=== PATIENT | female | born 1960 | race Caucasian/White ===

== ENCOUNTER 2016-05-09 00:42 | Inpatient (IN) ==
[2016-05-09] MEDS ORDERED: *HR* HYDROmorphone (PF) 1 MG/ML SYRINGE IVP PRN ×2 (05:29→05:31)
[2016-05-09] MEDS ORDERED: Naloxone 0.4 MG/ML INJ IVP PRN (05:31)
[2016-05-09] MEDS ORDERED: Ondansetron 4 MG/2 ML VIAL IVP PRN (05:31)
[2016-05-09] MEDS ORDERED: Acetaminophen 325 MG TABLET PO PRN (05:31)
[2016-05-09] MEDS ORDERED: Ipratropium/Albuterol Neb 3 ML IH PRN (05:44)
[2016-05-09] MEDS: Ringers Solution, Lactated 1,000 ML IVC SCH ×2 (06:26→17:16)
--- NOTE | 2016-05-09 07:06 | Internal Med History&Physical ---
Date of Encounter: 05/09/16 Time of Encounter: 05:45 Internal Medicine - H&P: HPI Chief complaint: lower abdominal pain, lower GI bleeding x 2 days. Admitted From: Emergency Dept Plans for Post Hospital Care: Home History of present illness: Ms. Vieyra is a 55 year old female with medical history significant for diverticulosis, ischemic colitis, tubular adenoma of colon, s/p SYL and lap cholecystectomy, presented to [facility] ED with left-sided lower abdominal pain, and bloody bowel movements of 2 days duration. Her pain was initially intermittent but has evolved to a constant pattern. She rates her pain as 7-10/10. She report tenemus. Her last 2 bowel movement very bloody. She described it as dark red clots. She reports some nausea, and retching without out-right vomiting. She has chronic nausea and vomiting which she relates to IBS. No fever or chills. No urinary symptoms. NO SICK CONTACTS, NO RECENT TRAVEL, no recent unusual ingestion. No use of antiplatelets or anticoagulants. She had an episode of ischemic colitis and sepsis in August 2015 that required hospitalization for several days. She consulted her PCP over the phone, he recommended she goes to the ED for evaluation. She is FULL CODE as per discussion. Medical history: Reports: arthritis, COPD, diabetes, hyperlipidemia, renal disease, dropped foot, depression, fibrmyalgia, chronic musculoskeletal and lower back pain, IBS, ischemic colitis, diverticulosis and tubular adenoma. Female Surgical History: Reports: cholecystectomy, hysterectomy, back surgery x 4 Psychiatric history: Reports: anxiety, depression Smoking status: Current every day smoker Alcohol use: Reports: none Drug use: Reports: none Family history: HTN, HLD, dm2. tia/cva. No family history of gastrointestinal tumors. Vital Signs Temperature 98.1 F 05/08/16 21:57 Pulse Rate 103 05/08/16 21:57 Respiratory Rate 16 05/08/16 21:57 Blood Pressure 113/60 05/08/16 21:57 O2 Sat by Pulse Oximetry 97 05/08/16 21:57 Temperature 98.1 F 05/08/16 21:57 Pulse Rate 103 05/08/16 21:57 Respiratory Rate 16 05/08/16 21:57 Blood Pressure 113/60 05/08/16 21:57 O2 Sat by Pulse Oximetry 97 05/08/16 21:57 O/E: Obese+, in mild distress from abdominal paint, ill looking, lethargic HEENT: Not pale, anicteric, afebrile, acyanotic, no JVD Chest: CTAB, relative reduction of air entry in the lung bases Heart/CVS: RRR, HS1/2, no murmur Abdomen: soft, diffusely tender, most tender in the LLQ, anticipatory guarding, no masses 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 Muscle power=5/5 in all extremities Skin: no active skin lesion Extremities: no normal pedal pulses, no calf tenderness, no pedal edema Lab Results 05/08/16 05/08/16 05/08/16 Range/Units 22:13 22:40 22:40 WBC 12.0 H (4.3-11.1) K/mcL RBC 4.79 (3.82-4.97) M/mcL Hgb 15.4 (11.5-15.4) g/dL Hct 44.7 (35.3-44.9) % MCV 93.3 (83.0-100.0) fL MCH 32.2 (28.0-33.3) pg MCHC 34.5 (31.6-35.5) g/dL RDW 13.3 (11.5-14.5) % Plt Count 252 (140-400) K/mcL MPV 11.2 (9.4-12.4) fL Immature Gran % 1.0 (0-4) % Seg Neutrophils % 61.8 % Lymphocytes % 28.0 % Monocytes % 5.4 % Eosinophils % 3.1 % Basophils % 0.7 % Neutrophils # 7.4 (1.6-8.9) K/mcL Lymphocytes # 3.4 (0.6-4.6) K/mcL Monocytes # 0.7 (0.0-1.3) K/mcL Eosinophils # 0.4 (0.0-0.6) K/mcL Basophils # 0.1 (0.0-0.2) K/mcL VBG Lactic Acid (0.5-2.2) mmol/L Sodium 141 (136-145) mEq/L Potassium 3.7 (3.5-4.5) mEq/L Chloride 105 (98-109) mEq/L Carbon Dioxide 21 (19-29) mEq/L BUN 19 (7-20) mg/dL Creatinine 1.51 H (0.57-1.11) mg/dL Est GFR ( Amer) 43 L (> 60) Est GFR (Non-Af Amer) 36 L (> 60) BUN/Creatinine Ratio 13 (6-26) Glucose 158 H (70-99) mg/dL POC Glucose 182 H (58-89) Calculated Osmolality 298 (280-300) Calcium 9.5 (8.6-10.8) mg/dL Total Bilirubin 0.5 (0.2-1.2) mg/dL AST 12 (5-34) Units/L ALT 16 (0-55) Units/L Alkaline Phosphatase 142 H (38-126) Units/L Serum Total Protein 8.1 (6.0-8.3) g/dL Albumin 3.6 (3.5-5.0) g/dL Globulin 4.5 H (2.4-3.5) g/dL Albumin/Globulin Ratio 0.8 L (1.1-2.2) Lipase 9 (8-78) Units/L Urine Color (Yellow) Urine Clarity (Clear) Urine pH (5.0-8.0) pH Units Ur Specific [place] (1.010-1.025) Urine Protein (Neg-Trace) mg/dL Urine Glucose (UA) (Normal) mg/dL Urine Ketones (Negative) mg/dL Urine Blood (Negative) Urine Nitrite (Negative) Urine Bilirubin (Negative) Urine Urobilinogen (Normal) mg/dL Ur Leukocyte Esterase (Negative) Urine Microscopic RBC (0-3) per hpf Urine Microscopic WBC Ur Squamous Epith Cells (None-Few) per lpf Amorphous Sediment (Few) Hyaline Casts (None-Few) per lpf Ur Culture Indicated? (NO) Stool Occult Blood (Negative) 05/08/16 05/08/16 05/08/16 Range/Units 22:40 23:30 23:30 WBC (4.3-11.1) K/mcL RBC (3.82-4.97) M/mcL Hgb (11.5-15.4) g/dL Hct (35.3-44.9) % MCV (83.0-100.0) fL MCH (28.0-33.3) pg MCHC (31.6-35.5) g/dL RDW (11.5-14.5) % Plt Count (140-400) K/mcL MPV (9.4-12.4) fL Immature Gran % (0-4) % Seg Neutrophils % % Lymphocytes % % Monocytes % % Eosinophils % % Basophils % % Neutrophils # (1.6-8.9) K/mcL Lymphocytes # (0.6-4.6) K/mcL Monocytes # (0.0-1.3) K/mcL Eosinophils # (0.0-0.6) K/mcL Basophils # (0.0-0.2) K/mcL VBG Lactic Acid 2.0 (0.5-2.2) mmol/L Sodium (136-145) mEq/L Potassium (3.5-4.5) mEq/L Chloride (98-109) mEq/L Carbon Dioxide (19-29) mEq/L BUN (7-20) mg/dL Creatinine (0.57-1.11) mg/dL Est GFR ( Amer) (> 60) Est GFR (Non-Af Amer) (> 60) BUN/Creatinine Ratio (6-26) Glucose (70-99) mg/dL POC Glucose (58-89) Calculated Osmolality (280-300) Calcium (8.6-10.8) mg/dL Total Bilirubin (0.2-1.2) mg/dL AST (5-34) Units/L ALT (0-55) Units/L Alkaline Phosphatase (38-126) Units/L Serum Total Protein (6.0-8.3) g/dL Albumin (3.5-5.0) g/dL Globulin (2.4-3.5) g/dL Albumin/Globulin Ratio (1.1-2.2) Lipase (8-78) Units/L Urine Color Yellow (Yellow) Urine Clarity Slightly Cloudy A (Clear) Urine pH 5.5 (5.0-8.0) pH Units Ur Specific [place] >= 1.030 H (1.010-1.025) Urine Protein 30 H (Neg-Trace) mg/dL Urine Glucose (UA) Normal (Normal) mg/dL Urine Ketones Negative (Negative) mg/dL Urine Blood Trace-intact H (Negative) Urine Nitrite Negative (Negative) Urine Bilirubin Negative (Negative) Urine Urobilinogen Normal (Normal) mg/dL Ur Leukocyte Esterase Negative (Negative) Urine Microscopic RBC 0-3 (0-3) per hpf Urine Microscopic WBC Test Not Performed Ur Squamous Epith Cells Few (None-Few) per lpf Amorphous Sediment Few (Few) Hyaline Casts Few (None-Few) per lpf Ur Culture Indicated? NO (NO) Stool Occult Blood Positive A (Negative) Abdomen/Pelvis CT 05/08/16 22:37 Acute colitis of the sigmoid. IMP Acute sigmoid colitis Chronic morbidities Recent history of ischemic colitis COPD DM2 HLD CKDIII Depression PLAN Admit IVF Dilaudid for analgesia, Zofran and phernegan for pain IV Cipro/flagyl Clear liquid diet Consult GI Continue other medications of chronic morbidities. I discussed my findings and assessment with the patient, she verbalized understanding and is agreeable, she is admitted for evaluation of sigmoid colitis and lower GI bleeding. Past Med Surg Social Fam HX - Past Medical History Medical history: arthritis, COPD, diabetes, hyperlipidemia, renal disease, other Psychiatric history: anxiety, depression - Past Surgical History Surgical History: cholecystectomy, hysterectomy, other (Lumbar fixation) - Social History Smoking Status: Current every day smoker Smokeless Tobacco Status: No Alcohol use: none Drug use: none - Family History Mother Hx Family Medical Disorders: Yes (Diabetes) Daughter Family Member Ethnicity: Non- Living Status: Still Living Hx Family Cardiac Disorders: No Hx Family Respiratory Disorders: No Hx Family Cancer: No Hx Family GI Disorders: No Hx Family Endocrine Disorder: No Hx Family Neuromuscular Disorders: No Hx Family Neurologic Disorders: No Hx Family HEENT Disorders: No Hx Family Autoimmune Disorders: No Internal Medicine - H&P: Meds Baclofen [Lioresal] 20 mg PO QID 02/08/15 [History] Citalopram [CeleXA] 40 mg PO DAILY 02/08/15 [History] Gabapentin [Neurontin] 800 mg PO QID 02/08/15 [History] Omeprazole [PriLOSEC] 40 mg PO DAILY 02/08/15 [History] GlipiZIDE [Glipizide Xl] 5 mg PO DAILY #30 tab.er.24 03/10/16 [Rx] Albuterol Neb [Proventil Neb] 2.5 mg IH Q6H PRN 05/09/16 [History] Albuterol Sulfate [Proair Hfa] 1 - 2 puff IH Q6H PRN 05/09/16 [History] Amitriptyline [Elavil] 100 mg PO HS 05/09/16 [History] Atorvastatin Calcium [Lipitor] 20 mg PO DAILY 05/09/16 [History] Metformin [Glucophage] 500 mg PO BID 05/09/16 [History] Metoclopramide [Reglan] 10 mg PO QIDAC 05/09/16 [History] Ranitidine HCl [Heartburn Relief] 150 mg PO BID 05/09/16 [History] Tolterodine Tartrate [Detrol] 2 mg PO BID 05/09/16 [History] Ciprofloxacin HCl [Cipro] 500 mg PO Q12H 10 Days 05/10/16 [Rx] MetroNIDAZOLE [Flagyl] 500 mg PO TID 10 Days 05/10/16 [Rx] Allergies allantoin Allergy (Verified 05/08/16 22:16) See Comments pt unsure of reaction codeine Allergy (Verified 05/08/16 22:16) Difficulty Breathing diphenhydramine [From Benadryl] Allergy (Verified 05/08/16 22:16) Chest Pain ibuprofen Allergy (Verified 05/08/16 22:16) See Comments "shuts my kidneys down" methylprednisolone [From Solu-Medrol] Allergy (Verified 05/08/16 22:16) Hives Penicillins [PCN] Allergy (Verified 05/08/16 22:16) Rash phenytoin [From Dilantin] Allergy (Verified 05/08/16 22:16) See Comments pt unsure of reaction prednisone Allergy (Verified 05/08/16 22:16) Hives Sulfa (Sulfonamide Antibiotics) Allergy (Verified 05/08/16 22:16) Rash promethazine [From Phenergan] Adverse Reaction (Verified 05/08/16 22:16) Shakiness All Systems PM: A 10-system review of systems was performed and is negative for pertinent findings except as documented above in the HPI. - Constitutional Vitals: Temp Pulse Resp BP Pulse Ox 98.7 F 102 20 105/65 98 05/09/16 03:06 05/09/16 03:06 05/09/16 03:06 05/09/16 03:06 05/09/16 03:06 Internal Med - H&P Results - Labs CBC & Chem 7: 05/10/16 04:36 05/10/16 04:36
[2016-05-09] MEDS: MetroNIDAZOLE 500 MG/100 ML 500 MG/100 ML BAG IVPB SCH ×2 (08:00→17:15)
[2016-05-09 09:08] LABS: Calcium 9.3 mg/dL (8.6-10.8); Potassium 3.9 mEq/L (3.5-4.5)
[2016-05-09] MEDS: *HR* HYDROmorphone (PF) 1 MG/ML SYRINGE IVP PRN ×5 (09:40→22:56)
--- NOTE | 2016-05-09 12:07 | Gastroenterology Consult Note ---
<Lauri Srinivasan - Last Filed: 05/09/16 12:05> Date of Encounter: 05/09/16 Time of Encounter: 10:30 - Assessment and plan (1) BRBPR (bright red blood per rectum) Current Visit: Yes Status: Acute Assessment and plan: Plan for colonoscopy tomorrow. Clear liquid diet today, no red or purple. NPO at midnight. Will use MiraLAX prep. If not clear by 6 AM, give 2 tap water enemas. (2) Colitis Current Visit: No Status: Acute Assessment and plan: Continue Cipro and Flagyl. Plan for colonoscopy tomorrow. (3) Constipation Current Visit: Yes Status: Acute Assessment and plan: Recommend daily fiber supplement and MiraLAX to twice a day PRN. Qualifiers: Constipation type: unspecified constipation type Qualified Code(s): K59.00 - Constipation, unspecified - Time Spent With Patient Total time spent is greater than 50% in coordination of care (as documented) at patient's floor/unit and/or counseling patient: GI History of Present Illness - Data of Consult Patient: known to practice within the last 3 years Consult date: 05/09/16 Requesting Physician: Cynthia Jarquin - Consult Narrative Reason for consult: Bloody BM, infective colitis History of present illness: Ms. Vieyra is a 55 year old female with PMHx of fibromyalgia, chronic musculoskeletal and low back pain, IBS, GERD, stress urinary incontinence, COPD , morbid obesity, CKD, HTN, dyslipidemia, RLS, and constipation who presented to the ED with c/o left-sided abdominal pain, bloody BM, and diarrhea which started 2 days prior to admission. She reports blood clots and BRBPR in bowl and with wiping with her last 2 BMS. She reports chronic nausea and diarrhea which she relates to her IBS. She does have a history of diverticulitis as well as an episode of severe ischemic colitis and sepsis in August 2015 that required hospitalization for several days. No fever or chills. She was started on Cipro and Flagyl. Procedures: Colonoscopy 08/25/2015 showed diffuse severe inflammation in the descending colon secondary to ischemic colitis, diverticulosis in the entire examined colon, and tubular adenoma NSAIDs: None Anticoagulation: None Past Med Surg Social Fam HX - Past Medical History Medical history: arthritis, COPD, diabetes, hyperlipidemia, renal disease, other Psychiatric history: anxiety, depression - Past Surgical History Surgical History: cholecystectomy, hysterectomy, other (Lumbar fixation) - Social History Smoking Status: Current every day smoker Smokeless Tobacco Status: No Alcohol use: none Drug use: none - Family History Mother Hx Family Medical Disorders: Yes (Diabetes) Daughter Family Member Ethnicity: Non- Living Status: Still Living Hx Family Cardiac Disorders: No Hx Family Respiratory Disorders: No Hx Family Cancer: No Hx Family GI Disorders: No Hx Family Endocrine Disorder: No Hx Family Neuromuscular Disorders: No Hx Family Neurologic Disorders: No Hx Family HEENT Disorders: No Hx Family Autoimmune Disorders: No - Gastrointestinal Gastrointestinal: Present: as per HPI - Constitutional Constitutional: as per HPI - EENT Eyes: as per HPI Ears: Present: as per HPI Nose, mouth and throat: Present: as per HPI - Cardiovascular Cardiovascular ROS: Present: as per HPI - Respiratory Respiratory IM: Present: as per HPI - Genitourinary Genitourinary: Absent: change in color, Urinary frequency - Neurological ROS Neurological GI: Present: as per HPI - Hematologic/Lymphatic Hematologic/Lymphatic pediatric: Present: as per HPI - Musculoskeletal Musculoskeletal ROS GI: Present: as per HPI - Integumentary Integumentary GI: Present: as per HPI - Psychiatric ROS Psychiatric GI: Present: as per HPI - Endocrine Endocrine IM: Present: as per HPI - Constitutional Vitals: Temp Pulse Resp BP Pulse Ox 98.0 F 83 16 94/64 97 05/09/16 10:21 05/09/16 10:21 05/09/16 10:21 05/09/16 10:21 05/09/16 10:21 General appearance: Present: cooperative, A&O X 3, no acute distress, answers questions appropriately - Head Head exam: Present: atraumatic, normocephalic - Eye Eye exam: Present: normal appearance, sclera anicteric - ENT ENT exam: Present: mucous membranes dry - Neck Neck exam general surgery: Present: normal inspection, trachea midline - Respiratory Respiratory exam: Present: CTAB. Absent: rales, rhonchi - Cardiovascular Cardiovascular exam: Present: RRR, +S1, +S2 - GI/Abdominal GI/Abdominal exam: Present: soft, tenderness (LLQ with palpation), no peritoneal signs. Absent: distended, firm, guarding - Rectal Rectal exam: Present: deferred - Extremities Exam Extremities exam: Present: warm - Neurological Exam Neurological exam: Present: no focal deficits - Psychiatric Psychiatric exam: Present: normal affect, normal mood - Skin Skin exam: Present: dry, intact, normal color, warm Results - Labs CBC & Chem 7: 05/09/16 08:45 Labs: Last Result Calcium 9.3 mg/dL (8.6-10.8) 05/09/16 08:45 Consult Discharge Plan - Plan Referrals: Edmundo Phillips MD [Primary Care Provider] - <MonaManuelJessica - Last Filed: 05/09/16 17:25> Date of Encounter: 05/09/16 Time of Encounter: 14:30 - Time Spent With Patient Total time spent is greater than 50% in coordination of care (as documented) at patient's floor/unit and/or counseling patient: GI History of Present Illness - Data of Consult Requesting Physician: Cynthia Jarquin - Consult Narrative History of present illness: Ms. Vieyra is a 55 year old female - Constitutional Vitals: Temp Pulse Resp BP Pulse Ox 98.1 F 83 14 97/67 94 L 05/09/16 14:27 05/09/16 14:27 05/09/16 14:27 05/09/16 14:27 05/09/16 14:27 Results - Labs CBC & Chem 7: 05/09/16 08:45 Labs: Last Result Calcium 9.3 mg/dL (8.6-10.8) 05/09/16 08:45 - Attending Attestation I examined this patient and my medical decision-making was reviewed with the CULTURAL ANTHROPOLOGY PROFESSOR/PA/Advanced Practice Nurse/Resident Physician. I agree with the documented findings, disposition and treatment plan as described except to the extent set forth below. Pt with sigmoid colitis. Still very tander. Cont Abs. C-scope as out pt in 6-8 weeks
[2016-05-10] MEDS: MetroNIDAZOLE 500 MG/100 ML 500 MG/100 ML BAG IVPB SCH ×2 (00:56→07:57)
[2016-05-10] MEDS: *HR* HYDROmorphone (PF) 1 MG/ML SYRINGE IVP PRN ×3 (02:01→06:41)
[2016-05-10] MEDS: Ringers Solution, Lactated 1,000 ML IVC SCH (04:23)
[2016-05-10 04:58] LABS: Basophils # 0.1 K/mcL (0.0-0.2); Basophils % 1.1 %; Eosinophils # 0.4 K/mcL (0.0-0.6); Eosinophils % 5.9 %; Hematocrit 38.7 % (35.3-44.9); Immature Granulocytes % 1.7 % (0-4); Lymphocytes # 2.2 K/mcL (0.6-4.6); Lymphocytes % 32.1 %; Mean Corpuscular HGB Conc 33.6 g/dL (31.6-35.5); Mean Corpuscular Hemoglobin 32.4 pg (28.0-33.3); Mean Corpuscular Volume 96.5 fL (83.0-100.0); Mean Platelet Volume 11.1 fL (9.4-12.4); Monocytes # 0.5 K/mcL (0.0-1.3); Monocytes % 7.3 %; Neutrophils # 3.6 K/mcL (1.6-8.9); Platelet Count 187 K/mcL (140-400); Red Blood Count 4.01 M/mcL (3.82-4.97); Red Cell Distribution Width 13.3 % (11.5-14.5); Segmented Neutrophils % 51.9 %
[2016-05-10 05:07] LABS: Calcium 8.4 mg/dL (8.6-10.8); Potassium 3.9 mEq/L (3.5-4.5)
[2016-05-10 07:57] VITALS: BP 95/53
--- NOTE | 2016-05-10 09:02 | Discharge Summary ---
<Kenn Pratt - Last Filed: 05/10/16 12:59> Date of Encounter: 05/10/16 Time of Encounter: 09:00 - Discharge Diagnosis (1) Left against medical advice Priority: Primary Status: Acute (2) Colitis Priority: Primary Status: Acute (3) BRBPR (bright red blood per rectum) Priority: Secondary Status: Acute (4) DM (diabetes mellitus), type 2 Priority: Secondary Status: Acute Qualifiers: Qualified Code(s): E11.9 - Type 2 diabetes mellitus without complications (5) Obesity (BMI 30-39.9) Priority: Secondary Status: Acute (6) HTN (hypertension) Priority: Secondary Status: Acute Qualifiers: Qualified Code(s): I10 - Essential (primary) hypertension (7) DVT prophylaxis Priority: Secondary Status: Acute - Discharge Medications Prescriptions: Ciprofloxacin HCl [Cipro] 500 mg PO Q12H 10 Days MetroNIDAZOLE [Flagyl] 500 mg PO TID 10 Days Home Medications: Baclofen [Lioresal] 20 mg PO QID 02/08/15 [History] Citalopram [CeleXA] 40 mg PO DAILY 02/08/15 [History] Gabapentin [Neurontin] 800 mg PO QID 02/08/15 [History] Omeprazole [PriLOSEC] 40 mg PO DAILY 02/08/15 [History] GlipiZIDE [Glipizide Xl] 5 mg PO DAILY #30 tab.er.24 03/10/16 [Rx] Albuterol Neb [Proventil Neb] 2.5 mg IH Q6H PRN 05/09/16 [History] Albuterol Sulfate [Proair Hfa] 1 - 2 puff IH Q6H PRN 05/09/16 [History] Amitriptyline [Elavil] 100 mg PO HS 05/09/16 [History] Atorvastatin Calcium [Lipitor] 20 mg PO DAILY 05/09/16 [History] Metformin [Glucophage] 500 mg PO BID 05/09/16 [History] Metoclopramide [Reglan] 10 mg PO QIDAC 05/09/16 [History] Ranitidine HCl [Heartburn Relief] 150 mg PO BID 05/09/16 [History] Tolterodine Tartrate [Detrol] 2 mg PO BID 05/09/16 [History] Ciprofloxacin HCl [Cipro] 500 mg PO Q12H 10 Days 05/10/16 [Rx] MetroNIDAZOLE [Flagyl] 500 mg PO TID 10 Days 05/10/16 [Rx] Allergies/Adverse Reactions: Allergies allantoin Allergy (Verified 05/08/16 22:16) See Comments pt unsure of reaction codeine Allergy (Verified 05/08/16 22:16) Difficulty Breathing diphenhydramine [From Benadryl] Allergy (Verified 05/08/16 22:16) Chest Pain ibuprofen Allergy (Verified 05/08/16 22:16) See Comments "shuts my kidneys down" methylprednisolone [From Solu-Medrol] Allergy (Verified 05/08/16 22:16) Hives Penicillins [PCN] Allergy (Verified 05/08/16 22:16) Rash phenytoin [From Dilantin] Allergy (Verified 05/08/16 22:16) See Comments pt unsure of reaction prednisone Allergy (Verified 05/08/16 22:16) Hives Sulfa (Sulfonamide Antibiotics) Allergy (Verified 05/08/16 22:16) Rash promethazine [From Phenergan] Adverse Reaction (Verified 05/08/16 22:16) Shakiness Date of admission: 05/09/16 05:31 Primary care physician: Edmundo Phillips MD Consults: 05/09/16 05:31 Consult to Gastroenterology [CONS] Routine Consulting Provider: Gastroenterology [place] Reason for Consult: infective colitis Call Completed: No 05/09/16 15:33 Consult to Occupational Therapy [CONS] Routine Comment: Evaluate, develop and implement POC Consult to Physical Therapy [CONS] Routine Comment: Evaluate, develop and implement POC Discharging clinician: Kenn Pratt Anticipated date of discharge: 05/10/16 - Patient Status Disposition: Home, Self-Care Condition: Serious Functional capacity at discharge: independent ambulation Overall status at discharge: patient is not back to baseline - Discharge Instructions Follow Up With: Edmundo Phillips MD [Primary Care Provider] - (F/u with her pcp w/in a week for leaving against medical advise hospital f/u, colitis untreated in hospital) Jessica Dunn MD [Partnered Physician] - (GI consult was placed in hospital for planned colonoscopy but pt let against medical advise, f/u as outpt, hopefully to have colonoscopy as soon as possible as outpt) - Diet and Activity Activity: other (bedrest) Diet: other (clear liquid diet until symptoms get better) Hospital course: Ms. Vieyra is a 55 year old female with hx of CAD and COPD came to ER with of left sided abdominal pain, CT of abd showed acute sigmoid colitis, she was started on cipro and flagyl IV, GI was consulted and thought that she is glory hole tender of sigmoid side therefore he recommended outpt colonoscopy in 6 to 8 week , before I was able to see her today, pt told nurse that she wants to smoke really bad that she will have to leave AMA, pt signed the paperwork and left. I spoke to her pharmacy over the phone for po flagyl/cipro, she fill f/u with her pcp and GI for outpt colonoscopy. - Time Spent with Patient Total time spent providing and/or coordinating discharge services: - Constitutional Vitals: Temp Pulse Resp BP Pulse Ox 98.0 F 76 16 95/53 96 05/10/16 07:52 05/10/16 07:52 05/10/16 07:52 05/10/16 07:52 05/10/16 07:52 Exam: Pt left against medical advise before I can examine and talk to her. <JackiKevin R - Last Filed: 05/10/16 16:38> Date of Encounter: 05/10/16 Date of admission: 05/09/16 05:31 Primary care physician: Edmundo Phillips MD Consults: 05/09/16 05:31 Consult to Gastroenterology [CONS] Routine Consulting Provider: Gastroenterology [place] Reason for Consult: infective colitis Call Completed: No 05/09/16 15:33 Consult to Occupational Therapy [CONS] Routine Comment: Evaluate, develop and implement POC Consult to Physical Therapy [CONS] Routine Comment: Evaluate, develop and implement POC Hospital course: Ms. Vieyra is a 55 year old female - Time Spent with Patient Total time spent providing and/or coordinating discharge services: - Constitutional Vitals: Temp Pulse Resp BP Pulse Ox 98.0 F 76 16 95/53 96 05/10/16 07:52 05/10/16 07:52 05/10/16 07:52 05/10/16 07:52 05/10/16 07:52 - Attending Attestation Mrs. Cline signed out against medical advice this a.m.
== END 2016-05-10 09:08 | disposition home or self-care (01) | DRG 249 ==
LOC: 3ANU → SUATTDRO 05:31
PROVIDERS: ADMIT Family Medicine; ATTEND Internal Medicine

== ENCOUNTER 2017-01-11 13:54 | Inpatient (IN) ==
[2017-01-11] MEDS ORDERED: Acetaminophen 325 MG TABLET PO ONE (18:29)
[2017-01-11] MEDS ORDERED: Acetaminophen 325 MG TABLET PO PRN (20:42)
[2017-01-11] MEDS ORDERED: Ondansetron 4 MG/2 ML VIAL IVP PRN (20:42)
[2017-01-11] MEDS ORDERED: Dextrose Gel 15 GM PO PRN ×2 (20:47)
[2017-01-11] MEDS ORDERED: *HR* Dextrose 50 % in Water (Syg) 50 ML SYRINGE IVP PRN (20:47)
[2017-01-11] MEDS ORDERED: D5% in Water 1,000 ML IVC PRN (20:47)
--- NOTE | 2017-01-11 20:56 | Internal Med History&Physical ---
Date of Encounter: 01/11/17 Time of Encounter: 20:15 Assessment and Plan (1) Expressive dysphasia Current visit: Yes Status: Acute 1. Suspect stroke. 2. Speech is improving. 3. Will proceed with stroke work up -- MRI brain, ECHO, Carotid Dopplers, and neurology consult. 4. Consult speech therapy. 5. Start aspirin, STATIN. 6. Smoking cessation counseling. (2) Type 2 diabetes mellitus Current visit: Yes Status: Chronic 1. Hold oral agents. 2. Will monitor glucose and treat with SSI. 3. Given CKD, I recommend stopping her oral diabetic medications and consider initiating insulin upon discharge. Qualifiers: Diabetes mellitus complication status: with kidney complications Diabetes mellitus complication detail: with chronic kidney disease Diabetes mellitus detention insulin use: without detention use Chronic kidney disease stage: stage 3 (moderate) Qualified Code(s): E11.22 - Type 2 diabetes mellitus with diabetic chronic kidney disease; N18.3 - Chronic kidney disease, stage 3 ( moderate); N18.3 - Chronic kidney disease, stage 3 (moderate) (3) Cardiac enzymes elevated Current visit: No Status: Acute 1. Patient denies CP or angina. 2. Will trend troponins and EKG's. 3. Patient may need further cardiac work-up after stroke evaluation. (4) HTN (hypertension) Current visit: No Status: Chronic 1. Patient not on home BP meds. 2. BP stable presently. 3. Monitor BP and do not treat (in the setting of stroke) unless SBP > 160. Qualifiers: Hypertension type: essential hypertension Qualified Code(s): I10 - Essential (primary) hypertension (5) DVT prophylaxis Current visit: No Status: Acute 1. Heparin SQ. Internal Medicine - H&P: HPI Chief complaint: difficulty speaking Admitted From: Hospital to Hospital Transfer Plans for Post Hospital Care: Home History of present illness: Ms. Vieyra is a 56 year old female who presents in transfer from [facility] [place] [facility] with complaints of difficulty speaking. Her last known well was last night before she went to bed. She woke up this morning and noted to have difficulty speaking and expressing herself verbally. She therefore came to the ER and initial workup was negative. She was not a candidate for TPA given unknown time of onset. She was therefore transferred here for further workup and care. Upon my assessment of the patient, she had several family members present who confirmed the history. Patient still has some expressive dysphagia, but she has improved significantly from this morning. She still has some difficulty expressing herself verbally, but for the most part, she is able to communicate fairly well. She has no other focal deficits. She denies any numbness, weakness, or paresthesias. She does have numbness of the right leg and foot drop, but this is old due to spinal surgery and chronic back issues. She denies any chest pain, shortness of breath, cough, fevers, vomiting, or diarrhea. Of note, her troponin was elevated slightly at 0.19. Her EKG shows some subtle T-wave inversion and ST depression anteriorly, but this is unchanged from an old EKG. Her stroke risk factors include diabetes, smoking history, and high cholesterol. Patient was counseled at length of the need to quit smoking. Past Med Surg Social Fam HX - Past Medical History Medical history: arthritis, COPD, diabetes, hyperlipidemia, renal disease, other Psychiatric history: anxiety, depression - Past Surgical History Surgical History: cholecystectomy, hysterectomy, orthopedic, other, other - Social History Smoking Status: Current every day smoker Packs per day: 1 Smokeless Tobacco Status: No Alcohol use: none Drug use: none Current living situation: Home - Independent Activity Level: Independent ambulation Recent Out of Country Travel Within the Last 8 Weeks: No - Family History Daughter Family Member Ethnicity: Non- Living Status: Still Living Hx Family Cardiac Disorders: No Hx Family Respiratory Disorders: No Hx Family Cancer: No Hx Family GI Disorders: No Hx Family Endocrine Disorder: No Hx Family Neuromuscular Disorders: No Hx Family Neurologic Disorders: No Hx Family HEENT Disorders: No Hx Family Autoimmune Disorders: No Mother Living Status: Hx Family Neurologic Disorders: No Father Living Status: Hx Family Neurologic Disorders: No Internal Medicine - H&P: Meds Oxycodone HCl 10 mg PO QID PRN 11/28/16 [History] Amitriptyline HCl 100 mg PO HS 01/11/17 [History] Atorvastatin [Lipitor] 40 mg PO HS 01/11/17 [History] Baclofen [Baclofen] 20 mg PO QID 01/11/17 [History] Citalopram Hydrobromide [Celexa] 40 mg PO DAILY 01/11/17 [History] Gabapentin [Neurontin] 800 mg PO QID 01/11/17 [History] Metoclopramide [Reglan] 10 mg PO Q6HR PRN 01/11/17 [History] Omeprazole [PriLOSEC] 40 mg PO DAILY 01/11/17 [History] glipiZIDE [Glucotrol] 5 mg PO DAILY 01/11/17 [History] 3 Allergy/AdvReac Type Severity Reaction Status Date / Time allantoin Allergy See Verified 07/22/16 22:39 Comments codeine Allergy Difficulty Verified 07/22/16 22:39 Breathing diphenhydramine Allergy Chest Pain Verified 07/22/16 22:39 [From Benadryl] ibuprofen Allergy See Verified 07/22/16 22:39 Comments methylprednisolone Allergy Hives Verified 07/22/16 22:39 [From Solu-Medrol] Penicillins [PCN] Allergy Rash Verified 07/22/16 22:39 phenytoin [From Dilantin] Allergy See Verified 07/22/16 22:39 Comments prednisone Allergy Hives Verified 07/22/16 22:39 Sulfa (Sulfonamide Allergy Rash Verified 07/22/16 22:39 Antibiotics) promethazine [From Phenergan] AdvReac Shakiness Verified 07/22/16 22:39 - Constitutional Constitutional: no chills, no fever(s), no night sweats - EENT Eyes: no blurry vision, no change in vision, no diplopia Ears: no ear pain, no tinnitus Nose, mouth and throat: no nasal congestion, no nasal discharge, no sinus pressure, no sore throat - Cardiovascular Cardiovascular ROS IM: no chest pain, no dyspnea, no dyspnea on exertion, no edema, no palpitations, no paroxysmal nocturnal dyspnea, no syncope - Respiratory Respiratory: no cough, no hemoptysis, no wheezing, no chest congestion, no excessive phlegm production, no pain with cough - Gastrointestinal Gastrointestinal: no abdominal pain, no diarrhea, no hematemesis, no hematochezia, no melena, no nausea, no vomiting - Genitourinary Genitourinary: no dysuria, no flank pain, no hematuria - Musculoskeletal Musculoskeletal ROS IM: arthralgias, back pain (chronic ) - Integumentary Integumentary IM: no rash, no jaundice - Neurological Neurological ROS: abnormal speech, no dizziness, no focal weakness, no frequent falls, no headache(s) - Psychiatric Psychiatric: no anxiety, no depression - Endocrine Endocrine IM: no polydipsia, no polyuria - Hematologic/Lymphatic Hematologic/Lymphatic: no easy bruising, no lymphadenopathy - Allergic/Immunologic Allergic/Immunologic: no GI upset with certain foods - Constitutional Vitals: Temp Pulse Resp BP Pulse Ox 98.2 F 84 17 126/82 95 01/11/17 19:24 01/11/17 19:24 01/11/17 19:24 01/11/17 19:24 01/11/17 19:24 General appearance: Present: cooperative, A&O X 3, pleasant, no acute distress - Head Head exam: Present: atraumatic, normal inspection - Expanded Head Exam Head exam expanded: Absent: abrasion, contusion, general tenderness - Eye Eye exam: Present: EOMI, normal appearance, PERRL. Absent: scleral icterus Pupils: Present: normal accommodation - ENT ENT exam: Present: mucous membranes dry, normal exam - Neck Neck exam general surgery: Present: full ROM, supple. Absent: tenderness, thyromegaly - Expanded Neck Exam Neck exam: Absent: carotid bruit - Respiratory Respiratory exam: Present: CTAB. Absent: chest wall tenderness, rales, rhonchi , wheezes - Cardiovascular Cardiovascular exam: Present: RRR, +S1, +S2. Absent: diastolic murmur, systolic murmur - GI/Abdominal GI/Abdominal exam: Present: normal bowel sounds, soft. Absent: guarding, hepatomegaly, rebound, splenomegaly, tenderness - Extremities Exam Extremities exam: Present: full ROM, normal capillary refill, warm, radial pulses palpable and symmetrical. Absent: calf tenderness, joint swelling, pedal edema - Back Exam Back exam: Absent: CVA tenderness (L), CVA tenderness (R) - Neurological Exam Neurological exam: Present: alert, CN II-XII intact, motor sensory deficit ( right lower extremity numbess and foot drop -- old/chronic), oriented X3, speech deficit (mild episodes of expressive dysphasia). Absent: facial droop - Psychiatric Psychiatric exam: Present: normal affect, normal mood - Skin Skin exam: Present: dry, warm. Absent: rash Internal Med - H&P Results - Labs Labs: I reviewed her labs at [facility] include the following: WBC 13.6 Hemoglobin 12.8 Hematocrit 37.7 Platelet count 178 PT 10.9 INR 1.0 PTT 29.4 Sodium 139 Potassium 3.7 Chloride 103 Carbon dioxide 21 BUN 21 Creatinine 2.[address] head -- negative - EKG Data -: EKG Interpreted by Myself EKG shows normal: sinus rhythm - EKG Data Prior EKG available for review: yes When compared to previous EKG: there is no significant change EKG comments: 01/11/17 21:16 Incomplete RBBB; anterior T wave changes and subtle ST depression suggesting ischemia -- unchanged from prior.
[2017-01-11] MEDS: *HR* Heparin 5,000 UNIT/ML VIAL SQ SCH (22:08)
[2017-01-11] MEDS: *HR* OxyCODONE Immed Rel 5 MG TABLET PO PRN (22:09)
[2017-01-11] MEDS: Baclofen 10 MG TABLET PO SCH (22:09)
[2017-01-11] MEDS: Gabapentin 400 MG CAPSULE PO SCH (22:09)
[2017-01-12 04:12] LABS: Basophils # 0.1 K/mcL (0.0-0.2); Basophils % 1.2 %; Eosinophils # 0.4 K/mcL (0.0-0.6); Hematocrit 37.5 % (35.3-44.9); Hemoglobin 12.2 g/dL (11.5-15.4); Immature Granulocytes % 2.7 % (0-4); Lymphocytes # 3.1 K/mcL (0.6-4.6); Lymphocytes % 34.7 %; Mean Corpuscular HGB Conc 32.5 g/dL (31.6-35.5); Mean Corpuscular Volume 95.4 fL (83.0-100.0); Monocytes # 0.7 K/mcL (0.0-1.3); Monocytes % 7.4 %; Neutrophils # 4.5 K/mcL (1.6-8.9); Platelet Count 169 K/mcL (140-400); Red Blood Count 3.93 M/mcL (3.82-4.97); Red Cell Distribution Width 14.4 % (11.5-14.5)
[2017-01-12 04:21] LABS: INR 1.1; Prothrombin Time 12.2 Seconds (9.4-12.1)
[2017-01-12 04:23] LABS: Activated Partial Thrombo Time 31.2 Seconds (26.0-36.0)
[2017-01-12 04:33] LABS: Albumin/Globulin Ratio 0.8 (1.1-2.2); Bilirubin,Total 0.3 mg/dL (0.2-1.2); Calcium 8.9 mg/dL (8.6-10.8); Chol/HDL Ratio 5.6 (0-4.9); Globulin 3.7 g/dL (2.4-3.5); Magnesium 1.6 mg/dL (1.6-2.6); Potassium 3.7 mEq/L (3.5-4.5); Total Protein 6.7 g/dL (6.0-8.3)
[2017-01-12] MEDS: *HR* Heparin 5,000 UNIT/ML VIAL SQ SCH (06:18)
[2017-01-12] MEDS ORDERED: 0.9 % Sodium Chloride 500 ML IVC ONE (08:30)
[2017-01-12] MEDS ORDERED: Aspirin 81 MG TAB.CHEW PO SCH (09:00)
[2017-01-12] MEDS: *HR* OxyCODONE Immed Rel 5 MG TABLET PO PRN (09:06)
[2017-01-12] MEDS: Gabapentin 400 MG CAPSULE PO SCH (09:06)
[2017-01-12] MEDS: 0.9 % Sodium Chloride 1,000 ML IVC SCH ×2 (09:07→18:24)
[2017-01-12] MEDS: Baclofen 10 MG TABLET PO SCH ×3 (09:07→17:50)
[2017-01-12] MEDS: Insulin LISPRO 300 UNITS/3 ML VIAL SQ SCH ×3 (09:08→17:42)
--- NOTE | 2017-01-12 09:31 | Neurology - Consult Note ---
Date of Encounter: 01/12/17 Time of Encounter: 08:30 Assessment and Plan (1) Expressive dysphasia Current Visit: Yes Status: Acute Patient presents with main concern for expressive dysphasia beginning earlier that day. She woke with these neurologic findings with last known normal the night before. Daughter noticed right facial droop and dysphasia. Although she has improved some since presentation, word finding is still present. No facial droop was seen at the time of exam, but patient seemed to suffer from some motor defects on the right. Whether these defects are from direct involvement in a stroke vs mild lizeth-neglect is uncertain at the moment. Given her definite aphasia, the location of the lesion would suggest lizeth-neglect. Echo performed was normal and b/l carotid dopplers showed Distal ICA RT is 60-79% no plaque visualized and Lft distal ICA 40-59% preliminarily. MRI is pending Wait for MRI in order to assess for CVA (size and location if present) Continue aspirin and statin Recommend PT/OT and speech evaluation and rehab allow permissive hypertension Recommend Continuos Cardiac History of Present Illness Chief complaint: Neuro deficits, aphasia HPI: Ms. Vieyra is a 56 year old female with past medical history of COPD, DM, CKD 3 , and hld presented to [facility], by way of her family doctor and [place] [facility], because of new neurological deficits. She reports that she first noticed some aphasia yesterday morning around 8am, but went back to sleep thinking that they would resolve. She was woken by her daughter at around 11am and continued to have the neurological symptoms and came to the ER. The daughter felt that she had a r-sided facial droop and she was having some difficulty speaking. After presentation to the ER, she began to have some improvement in her aphasia , though was still having some difficulty speaking. When seen this morning, she was asleep at first but woke relatively easily. She is still having difficulty with word finding and is having some frustration because of it, but is otherwise able to communicate. She reports that she has a bit of a headache and having had slightly blurred vision that is now resolved. She denies any new weakness of numbness. She denies ever having symptoms like this previously. She does state that she has a foot drop of her right foot for which she has had surgery before, that has left her with some numbness and weakness on that side. Past Med Surg Social Fam HX - Past Medical History Medical history: arthritis, COPD, diabetes, hyperlipidemia, renal disease, other Psychiatric history: anxiety, depression - Past Surgical History Surgical History: cholecystectomy, hysterectomy, orthopedic, other, other - Social History Smoking Status: Current every day smoker Packs per day: 1 Smokeless Tobacco Status: No Alcohol use: none Drug use: none - Family History Mother Living Status: Hx Family Neurologic Disorders: No Father Living Status: Hx Family Neurologic Disorders: No Daughter Family Member Ethnicity: Non- Living Status: Still Living Hx Family Cardiac Disorders: No Hx Family Respiratory Disorders: No Hx Family Cancer: No Hx Family GI Disorders: No Hx Family Endocrine Disorder: No Hx Family Neuromuscular Disorders: No Hx Family Neurologic Disorders: No Hx Family HEENT Disorders: No Hx Family Autoimmune Disorders: No Medications and Allergies Oxycodone HCl 10 mg PO QID PRN 11/28/16 [History] Amitriptyline HCl 100 mg PO HS 01/11/17 [History] Atorvastatin [Lipitor] 40 mg PO HS 01/11/17 [History] Baclofen [Baclofen] 20 mg PO QID 01/11/17 [History] Citalopram Hydrobromide [Celexa] 40 mg PO DAILY 01/11/17 [History] Gabapentin [Neurontin] 800 mg PO QID 01/11/17 [History] Metoclopramide [Reglan] 10 mg PO Q6HR PRN 01/11/17 [History] Omeprazole [PriLOSEC] 40 mg PO DAILY 01/11/17 [History] glipiZIDE [Glucotrol] 5 mg PO DAILY 01/11/17 [History] 3 Allergy/AdvReac Type Severity Reaction Status Date / Time allantoin Allergy See Verified 07/22/16 22:39 Comments codeine Allergy Difficulty Verified 07/22/16 22:39 Breathing diphenhydramine Allergy Chest Pain Verified 07/22/16 22:39 [From Benadryl] ibuprofen Allergy See Verified 07/22/16 22:39 Comments methylprednisolone Allergy Hives Verified 07/22/16 22:39 [From Solu-Medrol] Penicillins [PCN] Allergy Rash Verified 07/22/16 22:39 phenytoin [From Dilantin] Allergy See Verified 07/22/16 22:39 Comments prednisone Allergy Hives Verified 07/22/16 22:39 Sulfa (Sulfonamide Allergy Rash Verified 07/22/16 22:39 Antibiotics) promethazine [From Phenergan] AdvReac Shakiness Verified 07/22/16 22:39 - Constitutional Constitutional ROS IM: headache(s), no chills, no fever(s), no weakness - Eyes Eyes: right: blurred vision (now resolved) - Nose, Mouth, Throat Nose, mouth and throat: headache(s), no abnormal hearing, no disequilibrium, no dysphagia, no facial pain - Cardiovascular Cardiovascular ROS IM: rapid heart rate, no chest pain, no diaphoresis, no lightheadedness - Respiratory Respiratory IM: no cough, no dyspnea - Musculoskeletal Musculoskeletal: right: ankle stiffness - Neurological Neurological ROS: abnormal speech (as per HPI), focal weakness (chronic in right foot, in right eye with right lateral eye movement, in right SCM), headache(s), numbness (in r foot/leg), sensory deficit (as per HPI), no confusion, no disequilibrium, no dizziness, no loss of vision, no memory loss, no weakness Physical Examination - Vital Signs Vital Signs: Initial Vital Signs Temp Pulse Resp BP Pulse Ox 97.6 F 81 16 140/87 95 01/11/17 16:29 01/11/17 16:29 01/11/17 16:29 01/11/17 16:29 01/11/17 16:29 - Exam Exam: Gen: asleep but easily woken, no acute distress, comfortable appearing, A&Ox3 HEENT: NCAT, mucous membranes moist, difficulty with right lateral movement of right eye, PERRLA, neck supple, difficulty in movement of neck to right CV: RRR, no m/r/g Resp: CTA b/l, no w/c/r Neuro: A&Ox3, finger to nose inacurrate with tremors, [id number] smooth and accurate with left leg, but unable to perform with right, JOHN poor anthony and not rapid, CN 2-12 show reduced motion of right eye in abduction, mildly decreased sensation on right side of face, strength 4/5 in right side bending and right head rotation, gross sensation intact except for chronic decreased sensation in right foot and leg, strength intact in UE but chonically decreased in right LE, DTRS 1/4 in LE and 2/4 in UE b/l Results - Laboratory Findings CBC and BMP: 01/12/17 03:31 01/12/17 03:31 Abnormal lab findings: Abnormal lab results PT 12.2 Seconds (9.4-12.1) H 01/12/17 03:31 Creatinine 1.96 mg/dL (0.57-1.11) H 01/12/17 03:31 Est GFR ( Amer) 32 (> 60) L 01/12/17 03:31 Est GFR (Non-Af Amer) 26 (> 60) L 01/12/17 03:31 Glucose 210 mg/dL (70-99) H 01/12/17 03:31 POC Glucose 145 (58-89) H 01/11/17 16:45 Calculated Osmolality 303 (280-300) H 01/12/17 03:31 Alkaline Phosphatase 153 Units/L (38-126) H 01/12/17 03:31 Troponin I 0.19 ng/mL (0-0.03) H* 01/12/17 03:31 Albumin 3.0 g/dL (3.5-5.0) L 01/12/17 03:31 Globulin 3.7 g/dL (2.4-3.5) H 01/12/17 03:31 Albumin/Globulin Ratio 0.8 (1.1-2.2) L 01/12/17 03:31 Triglycerides 261 mg/dL (< 150) H 01/12/17 03:31 VLDL Cholesterol, Calc 52 mg/dL (< 31) H 01/12/17 03:31 HDL Cholesterol 28 mg/dL (40-59) L 01/12/17 03:31 Cholesterol/HDL Ratio 5.6 (0-4.9) H 01/12/17 03:31 Consult Discharge Plan - Plan Referrals: Edmundo Phillips MD [Primary Care Provider] -
--- NOTE | 2017-01-12 12:39 | Internal Med Progress Note ---
Date of Encounter: 01/12/17 Time of Encounter: 12:36 - Assessment and plan (1) Expressive dysphasia Current Visit: Yes Status: Acute Assessment and plan: Jennifer Vieyra is a 56 y/o female with past medical history hypertension, diabetes and tobacco use who presented to outside hospital on 01/11/17 with expressive aphasia and right arm weakness. She was transferred to [facility] for further work-up and treatment. 1. Expressive aphasia: With difficulty speaking and right arm weakness. Not a candidate for TPA given unknown time of symptom onset. Head CT nonacute. TTE was EF 60%, bubble study was attempted but poor quality and could not assess for PFO or cardiac source of emboli. Brain MRI, carotid Dopplers pending. Neurology consulted. Continue ASA, statin 2. Chest pain: With reported intermittent chest pain for several days prior to presentation. Troponin peaked at 0.34. EKG with T-wave inversion and ST depression, unchanged from previous EKG. Cardiology consult. Continue ASA, statin 3. ANTOINETTE: Cr 1.9; baseline unknown; creatinine range 1.18-2.3 over the last year. Patient says she follows with nephrology outpatient. Continue IV fluids. Monitor repeat CMP. Avoid nephrotoxic agents as possible. 4. Hypertension: BP variable but acceptable for now. Cont home BP medications. Monitor BP and titrate PRN 5. Diabetes: per hx. Control unknonw. Holding home oral hypoglycemics. SSI inpatient. Monitor blood sugar and titrate PRN. Hgb A1c pending 6. DVT prophylaxis: Heparin (2) HTN (hypertension) Current Visit: No Status: Chronic Qualifiers: Hypertension type: essential hypertension Qualified Code(s): I10 - Essential (primary) hypertension (3) Type 2 diabetes mellitus Current Visit: Yes Status: Chronic Qualifiers: Diabetes mellitus complication status: with kidney complications Diabetes mellitus complication detail: with chronic kidney disease Diabetes mellitus terminal gauger insulin use: without terminal gauger use Chronic kidney disease stage: stage 3 (moderate) Qualified Code(s): E11.22 - Type 2 diabetes mellitus with diabetic chronic kidney disease; N18.3 - Chronic kidney disease, stage 3 ( moderate); N18.3 - Chronic kidney disease, stage 3 (moderate) (4) DVT prophylaxis Current Visit: No Status: Acute - Constitutional Vitals: Temp Pulse Resp BP Pulse Ox 97.8 F 91 20 168/77 94 01/12/17 11:53 01/12/17 11:53 01/12/17 11:53 01/12/17 11:53 01/12/17 11:53 General appearance: Present: cooperative, A&O X 3, pleasant, no acute distress Internal Medicine: Result - Labs CBC & Chem 7: 01/12/17 03:31 01/12/17 03:31 Labs: Short CBC 01/12/17 Range/Units 03:31 WBC 9.0 (4.3-11.1) K/mcL Hgb 12.2 (11.5-15.4) g/dL Hct 37.5 (35.3-44.9) % Plt Count 169 (140-400) K/mcL Neutrophils # 4.5 (1.6-8.9) K/mcL BMP 01/12/17 03:31 Sodium 142 Potassium 3.7 Chloride 107 Carbon Dioxide 25 BUN 20 Creatinine 1.96 H Glucose 210 H Calcium 8.9 Cardiac Enzymes 01/11/17 01/12/17 01/12/17 Range/Units 21:06 03:31 09:37 Troponin I 0.15 H* 0.19 H* 0.34 H* (0-0.03) ng/mL Liver Function 01/12/17 Range/Units 03:31 Total Bilirubin 0.3 (0.2-1.2) mg/dL AST 10 (5-34) Units/L ALT 10 (0-55) Units/L Alkaline Phosphatase 153 H (38-126) Units/L Albumin 3.0 L (3.5-5.0) g/dL - ABG Interpretation ABG results: PT/INR, D-dimer PT 12.2 Seconds (9.4-12.1) H 01/12/17 03:31 - Impressions Impressions Echocardiogram 01/12/17 20:42 Impressions: Normal LV systolic function, LVEF 60%. Normal left ventricular diastolic function. Normal right ventricular size and function. Mild mitral regurgitation. Agitated saline contrast study was attempted, but was poor in quality. Cannot assess for intracardiac shunting on this study. Left Ventricular Wall Motion: Rest Echo Findings All wall segments showed normal motion. Findings: Study Quality * Suboptimal echo windows. ECG Findings * Normal sinus rhythm. Left Ventricle * Normal LV systolic function, LVEF 60%. * Normal LV chamber size and wall thickness. * Normal left ventricular diastolic function. Right Ventricle * Normal right ventricular size and function. Left Atrium * Normal left atrial size. Right Atrium * Normal right atrial size. Interatrial Septum * Lipomatous interatrial septum. * Agitated saline contrast study was attempted, but was poor in quality. Cannot assess for intracardiac shunting on this study. Aorta * Normally sized aortic root. Pericardium * There is a trivial pericardial effusion present. IVC * Normal IVC dimensions and inspiratory collapse. Aortic Valve * Trileaflet aortic valve. * No aortic stenosis. * No aortic regurgitation. Mitral Valve * Normal mitral valve structure. * No mitral stenosis. * Mild mitral regurgitation. Tricuspid Valve * Tricuspid valve not well visualized. * No tricuspid stenosis. * Trace tricuspid regurgitation. * Unable to estimate RVSP due to lack of TR jet. Pulmonic Valve * Pulmonic valve not well visualized. * No pulmonic stenosis. * Trace pulmonic regurgitation. Consult Discharge Plan - Plan Referrals: Edmundo Phillips MD [Primary Care Provider] -
--- NOTE | 2017-01-12 13:57 | Cardiology Consult Note ---
Date of Encounter: 01/12/17 Time of Encounter: 13:49 Assessment and Plan (1) Chest pain Current Visit: Yes Status: Acute Patient states that she woke up yesterday morning with chest pain that she felt like was her indigestion. She states that the pain radiated into her left cheek and ear. Tried taking medication for indigestion without relief. Patient states that she is still having chest pain and rates it as a 4/10.Patient states that she has never had a catheterization or any cardiac history. She has had a stress test years ago and states that it was fine. Patient had troponins that have been trending upward 0.19, 0.15, 0.19, 0.34. Recommend continuing to trend troponin. Patient may need heparin drip if troponin continues to rise and if neurology is okay with heparin drip Echo report from 01/12/17 showed Normal LV systolic function, LVEF 60%. Normal left ventricular diastolic function. Normal right ventricular size and function. Mild mitral regurgitation. Agitated saline contrast study was attempted, but was poor in quality. Cannot assess for intracardiac shunting on this study. Qualifiers: Chest pain type: unspecified Qualified Code(s): R07.9 - Chest pain, unspecified (2) Elevated troponin Current Visit: Yes Status: Acute Patient states that she woke up yesterday morning with chest pain that she felt like was her indigestion. She states that the pain radiated into her left cheek and ear. Tried taking medication for indigestion without relief. Patient states that she is still having chest pain and rates it as a 4/10. Patient had troponins that have been trending upward 0.19, 0.15, 0.19, 0.34. Recommend continuing to trend troponin. Patient may need heparin drip if troponin continues to rise and if neurology is okay with heparin drip (3) Expressive dysphasia Current Visit: Yes Status: Acute Patient woke up yesterday morning with difficulty getting words. She states that she knows what she wants to say but is not able to get the words out. She had a CT of the head which showed stable appearance of the brain without acute intracranial process identified. Carotid duplex, echo and MRI of the head, neck and brain have been ordered. Neurology has been consulted. Echo report from 01/12/17 showed Normal LV systolic function, LVEF 60%. Normal left ventricular diastolic function. Normal right ventricular size and function. Mild mitral regurgitation. Agitated saline contrast study was attempted, but was poor in quality. Cannot assess for intracardiac shunting on this study. 01/12/17 - Vascular Preliminary -Carotid duplex bilateral...Distal ICA RT is 60- 79% no plaque visualized...Lft distal ICA 40-59% MRI Still pending (4) HTN (hypertension) Current Visit: No Status: Chronic Known history of Hypertension. Most recent blood pressure was 168/77. Currently being managed by the primary team. Qualifiers: Hypertension type: essential hypertension Qualified Code(s): I10 - Essential (primary) hypertension (5) Acute kidney injury superimposed on chronic kidney disease Current Visit: Yes Status: Inactive Patient has a history of CKD. She states that she follows with a kidney doctor on an outpatient basis. Most recent Cr 1.96 and GFR of 26. Over the past year she has had Cr range of 1.26-2.87. Currently being managed by the primary service. (6) Type 2 diabetes mellitus Current Visit: Yes Status: Chronic Known history of type 2 diabetes. Most recent blood sugar was 210. Currently being managed by the primary service. Qualifiers: Diabetes mellitus complication status: with kidney complications Diabetes mellitus complication detail: with chronic kidney disease Diabetes mellitus prison insulin use: without prison use Chronic kidney disease stage: stage 3 (moderate) Qualified Code(s): E11.22 - Type 2 diabetes mellitus with diabetic chronic kidney disease; N18.3 - Chronic kidney disease, stage 3 ( moderate); N18.3 - Chronic kidney disease, stage 3 (moderate) (7) DVT prophylaxis Current Visit: No Status: Acute Heparin SQ for DVT prophylaxis. This is being managed by the primary service. Discussion w patient/family: The assessment and plan as outlined above was discussed with the patient and/or family members who expressed understanding and agreement. All questions were answered. Thank you for involving us in the care of your patient. Please call with any questions. History of Present Illness Consult date: 01/12/17 Requesting physician: Leyla Ibarra Consult reason: Elevated Troponin/intermittent chest pain Chief complaint: Expressive Aphasia History of present illness: Ms. Vieyra is a 56 year old female that presented to the ED for difficulty speaking. She states that she woke up with it yesterday morning. She states that she knows what she wants to say but is not always able to get the words out. She states that this has been improving. The patient also states that she was having some chest pain that she felt was her indigestion/reflux. She tried to take medications for her indigestion but they did not provide any relief. She states that they do not always work. She rated the pain as a 7/10 yesterday and states that she woke up with this pain. The patient denied any palpitations. She states that she did have some nausea and shortness of breath but this is chronic for her and was not worsened by the chest pain. She denies any diaphoresis. She states that this pain radiated into her left cheek and ear. She states that she is still having some of the indigestion/burning chest pain and rates it as a 4/10. She denies any radiation of the pain at this time. Patient denies any previous cardiac history. She denies CA, arrhythmias, cardiac caths but admits to having a stress test a long time ago and states that it was fine. Multiple family members at bedside helping with the history when possible. Past Med Surg Social Fam HX - Past Medical History Medical history: arthritis, COPD, diabetes, hyperlipidemia, renal disease, other Psychiatric history: anxiety, depression - Past Surgical History Surgical History: cholecystectomy, hysterectomy, orthopedic, other, other - Social History Smoking Status: Current every day smoker Packs per day: 1 Smokeless Tobacco Status: No Alcohol use: none Drug use: none - Family History Mother Living Status: Hx Family Neurologic Disorders: No Father Living Status: Hx Family Neurologic Disorders: No Daughter Family Member Ethnicity: Non- Living Status: Still Living Hx Family Cardiac Disorders: No Hx Family Respiratory Disorders: No Hx Family Cancer: No Hx Family GI Disorders: No Hx Family Endocrine Disorder: No Hx Family Neuromuscular Disorders: No Hx Family Neurologic Disorders: No Hx Family HEENT Disorders: No Hx Family Autoimmune Disorders: No Medications and Allergies Oxycodone HCl 10 mg PO QID PRN 11/28/16 [History] Amitriptyline HCl 100 mg PO HS 01/11/17 [History] Atorvastatin [Lipitor] 40 mg PO HS 01/11/17 [History] Baclofen [Baclofen] 20 mg PO QID 01/11/17 [History] Citalopram Hydrobromide [Celexa] 40 mg PO DAILY 01/11/17 [History] Gabapentin [Neurontin] 800 mg PO QID 01/11/17 [History] Metoclopramide [Reglan] 10 mg PO Q6HR PRN 01/11/17 [History] Omeprazole [PriLOSEC] 40 mg PO DAILY 01/11/17 [History] glipiZIDE [Glucotrol] 5 mg PO DAILY 01/11/17 [History] 3 Allergy/AdvReac Type Severity Reaction Status Date / Time allantoin Allergy See Verified 07/22/16 22:39 Comments codeine Allergy Difficulty Verified 07/22/16 22:39 Breathing diphenhydramine Allergy Chest Pain Verified 07/22/16 22:39 [From Benadryl] ibuprofen Allergy See Verified 07/22/16 22:39 Comments methylprednisolone Allergy Hives Verified 07/22/16 22:39 [From Solu-Medrol] Penicillins [PCN] Allergy Rash Verified 07/22/16 22:39 phenytoin [From Dilantin] Allergy See Verified 07/22/16 22:39 Comments prednisone Allergy Hives Verified 07/22/16 22:39 Sulfa (Sulfonamide Allergy Rash Verified 07/22/16 22:39 Antibiotics) promethazine [From Phenergan] AdvReac Shakiness Verified 07/22/16 22:39 All Systems Review: A 10-system review of systems was performed and is negative for pertinent findings except as documented above in the HPI. - Constitutional Constitutional: headache(s) - Cardiovascular Cardiovascular: chest pain at rest - Respiratory Respiratory: dyspnea - Gastrointestinal Gastrointestinal: abdominal pain, melena - Genitourinary Genitourinary: dysuria - Neurological Neurological: focal weakness (Right foot drop), other (Right foot drop, expressive aphasia ) Physical Examination Vital Signs, Last 4 Hours Temp Pulse Resp BP Pulse Ox 01/12/17 11:53 97.8 F 91 20 168/77 94 01/12/17 11:51 98.1 F 70 116/81 95 General: Conversant, No Apparent Distress HEENT: Atraumatic, Normocephaly, Mucus Membranes Moist Neck: No JVD, Normal carotid pulses Cardiac: Reg Rate and Rhythm, Normal S1 and S2, No Murmur Lungs: Normal Breath Sounds, No Wheeze, Rales, Rhonchi Neuro: Alert and responsive, Other (Decreased sensation in right lower extremity from preious surgery. Right foot drop from previous surgery. ) Abdomen: Soft, Other (Diffuse abdominal tenderness ) Skin: No rashes noted on visualized skin Extremities: No Clubbing, No Cyanosis, Normal Pulses, Other (1+ edema in the left lower extremity) Results 01/12/17 03:31 01/12/17 03:31 Lab Results 01/11/17 01/12/17 01/12/17 21:06 03:31 03:31 WBC 9.0 Hgb 12.2 Hct 37.5 Plt Count 169 INR APTT Sodium Potassium Chloride Carbon Dioxide BUN Creatinine Glucose Calcium Magnesium Total Bilirubin AST ALT Alkaline Phosphatase Troponin I 0.15 H* 0.19 H* 01/12/17 01/12/17 01/12/17 03:31 03:31 09:37 WBC Hgb Hct Plt Count INR 1.1 APTT 31.2 Sodium 142 Potassium 3.7 Chloride 107 Carbon Dioxide 25 BUN 20 Creatinine 1.96 H Glucose 210 H Calcium 8.9 Magnesium 1.6 Total Bilirubin 0.3 AST 10 ALT 10 Alkaline Phosphatase 153 H Troponin I 0.34 H* - Imaging and Cardiology Echo: report reviewed Other Results: Head CT report reviewed - EKG Interpretation EKG results cardiology: personally reviewed, sinus rhythm Consult Discharge Plan - Plan Referrals: Edmundo Phillips MD [Primary Care Provider] -
[2017-01-12] MEDS ORDERED: *HR* Heparin 5,000 UNIT/ML VIAL SQ SCH (14:00)
--- NOTE | 2017-01-12 15:04 | Carotid Imaging Report ---
Carotid Duplex Patient Name:Jennifer Vieyra Order Number:[id number] Procedure Date:01/12/2017 Date:1960ge:56 yrs Gender:Female Location:[facility] Room #: 3B24 Bill Clerk:Alia Castro Referring MD:Deacon Sullivan MD Reading MD:Kenn Landers MD Risk Factors Yes/No Hypertension No Diabetes No Hypercholesterolemia No Smoking Current Yes Hx of TIA No Hx of CVA No Impressions: The right internal carotid artery has a 60-79% stenosis. The left internal carotid artery has a 40-59% stenosis. Recommendations: Risk factor reduction. Further evaluation recommended if clinically indicated. Follow-up carotid duplex in 1 year. After imaging the patient returned to their room. Findings Carotid Duplex: Right: The right proximal common carotid artery has a PSV of 52 cm/s and a EDV of 17 cm/s. The right mid common carotid artery has a PSV of 65 cm/s and a EDV of 19 cm/s. The right distal common carotid artery has a PSV of 75 cm/s and a EDV of 27 cm/s. The right bifurcation has a PSV of 53 cm/s and a EDV of 18 cm/s. The right proximal internal carotid artery has a PSV of 86 cm/s and a EDV of 47 cm/s. The right mid internal carotid artery has a PSV of 95 cm/s and a EDV of 47 cm/s. The right distal internal carotid artery has a PSV of 159 cm/s and a EDV of 61 cm/s. The right eca has a PSV of 84 cm/s and a EDV of 19 cm/s. The right vertebral artery has a PSV of 35 cm/s and a EDV of 13 cm/s. Left: The left proximal common carotid artery has a PSV of 108 cm/s and a EDV of 33 cm/s. The left mid common carotid artery has a PSV of 95 cm/s and a EDV of 36 cm/s. The left bifurcation has a PSV of 92 cm/s and a EDV of 35 cm/s. The left proximal internal carotid artery has a PSV of 101 cm/s and a EDV of 48 cm/s. The left mid internal carotid artery has a PSV of 99 cm/s and a EDV of 45 cm/s. The left distal internal carotid artery has a PSV of 159 cm/s and a EDV of 70 cm/s. The left eca has a PSV of 86 cm/s and a EDV of 22 cm/s. The left vertebral artery has a PSV of 58 cm/s and a EDV of 26 cm/s. Carotid Results Right PSV EDV Assessment Proximal CCA 52 17 Normal Mid CCA 65 19 Normal Distal CCA 75 27 Normal Bifurcation 53 18 Normal Proximal ICA 86 47 Normal Mid ICA 95 47 Normal Distal ICA 159 61 60-79% stenosis ECA 84 19 Normal Vertebral Artery 35 13 Normal Left PSV EDV Assessment Proximal CCA 108 33 Normal Mid CCA 95 36 Normal Bifurcation 92 35 Normal Proximal ICA 101 48 Normal Mid ICA 99 45 Normal Distal ICA 159 70 40-59% stenosis ECA 86 22 Normal Vertebral Artery 58 26 Normal Ratio's Right ICA/CCA Ratio: 2.45 ICA/CCA Values: 159/65 Left ICA/CCA Ratio: 1.70 ICA/CCA Values: 159/95 Updated by Kenn Landers MD on 01/12/2017 2:57:51 PM electronically signed on 01/12/2017 2:58:12 PM with status of Final
--- NOTE | 2017-01-12 17:21 | Event Note ---
Date of Encounter: 01/12/17 Time of Encounter: 17:17 Jennifer Vieyra is a 56 y/o female with past medical history hypertension, diabetes and tobacco use who presented to outside hospital on 01/11/17 with expressive aphasia and right arm weakness. She was transferred to [facility] for further work-up and treatment. She was found to have an acute CVA, concern for embolic etiology. She had an acute change in mental status on 08/2016. Discussed case with Dr. Quiroga and given patient's acute infarct, need for heparin drip and acute change in mental status we will transfer to [facility] 1. Acute CVA: presented with difficulty speaking and right arm weakness. Not a candidate for TPA given unknown time of symptom onset. Head CT nonacute. TTE was EF 60%, bubble study was attempted but poor quality and could not assess for PFO or cardiac source of emboli. Brain MRI with multiple, small, acute infarcts involving the bilateral cerebral and cerebellar hemispheres, concern for embolic etiology. Discussed with Dr. Fatima and if repeat head CT negative for hemorrhage will start heparin drip (stroke protocol NO BOLUS). Carotid Dopplers, SKYLA pending. Continue ASA, statin. Neurology following 2. Acute encephalopathy: Patient alert and oriented on arrival; with expressive aphasia but was able to hold a conversation and answer questions appropriately at times. Became obtunded 08/2016 ED and. Etiology unknown at this time. Stat head CT, ABGs pending. She received a dose of OxyIR at 08 30 on 01/12 given trialing Narcan 3. Chest pain: With reported intermittent chest pain for several days prior to presentation. Troponin peaked at 0.34. EKG with T-wave inversion and ST depression, unchanged from previous EKG. Cardiology consulted. Continue ASA, statin 3. ANTOINETTE: Cr 1.9; baseline unknown; creatinine range 1.18-2.3 over the last year. Patient says she follows with nephrology outpatient. Continue IV fluids. Monitor repeat CMP. Avoid nephrotoxic agents as possible. 4. Hypertension: BP variable but acceptable for now. Patient family report intermittent symptoms for the past several weeks, she is past the timeframe for permissive hypertension. Cont home BP medications. Monitor BP and titrate PRN 5. Diabetes: per hx. Control unknonw. Holding home oral hypoglycemics. SSI inpatient. Monitor blood sugar and titrate PRN. Hgb A1c pending 6. DVT prophylaxis: Heparin
[2017-01-12 17:26] LABS: ABG Base Excess -1 mEq/L (-2 to 3); ABG HCO3 26 mEq/L (21-27); ABG Oxygen Saturation 97 % (95-98); ABG PCO2 53 mmHg (35-45); ABG PO2 105 mmHg (85-104); ABG TCO2 28 mEq/L (20-26)
[2017-01-12] MEDS ORDERED: Heparin 25,000 UNIT/500 ML D5W 25,000 UNIT/500 ML MLS IVC SCH (17:30)
[2017-01-12] MEDS ORDERED: Naloxone 0.4 MG/ML INJ IVP ONE (17:45)
[2017-01-12 17:47] VITALS: BP 128/86
[2017-01-12] MEDS: Naloxone 0.4 MG/ML INJ IVP PRN ×2 (17:47→17:57)
[2017-01-12 18:59] LABS: Basophils # 0.1 K/mcL (0.0-0.2); Basophils % 1.1 %; Eosinophils # 0.3 K/mcL (0.0-0.6); Eosinophils % 3.3 %; Hematocrit 38.1 % (35.3-44.9); Hemoglobin 12.5 g/dL (11.5-15.4); Immature Granulocytes % 2.7 % (0-4); Lymphocytes % 34.2 %; Mean Corpuscular HGB Conc 32.8 g/dL (31.6-35.5); Mean Corpuscular Hemoglobin 31.6 pg (28.0-33.3); Mean Corpuscular Volume 96.5 fL (83.0-100.0); Mean Platelet Volume 11.2 fL (9.4-12.4); Monocytes # 0.7 K/mcL (0.0-1.3); Monocytes % 7.8 %; Neutrophils # 4.5 K/mcL (1.6-8.9); Platelet Count 167 K/mcL (140-400); Red Blood Count 3.95 M/mcL (3.82-4.97); Red Cell Distribution Width 14.4 % (11.5-14.5); Segmented Neutrophils % 50.9 %
--- NOTE | 2017-01-12 19:11 | Discharge Summary ---
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 (2) HTN (hypertension) Priority: Secondary Status: Chronic Qualifiers: Hypertension type: essential hypertension Qualified Code(s): I10 - Essential (primary) hypertension (3) Type 2 diabetes mellitus Priority: Secondary Status: Chronic Qualifiers: Diabetes mellitus complication status: with kidney complications Diabetes mellitus complication detail: with chronic kidney disease Diabetes mellitus long term acute care registered nurse insulin use: without mcc use Chronic kidney disease stage: stage 3 (moderate) Qualified Code(s): E11.22 - Type 2 diabetes mellitus with diabetic chronic kidney disease; N18.3 - Chronic kidney disease, stage 3 ( moderate); N18.3 - Chronic kidney disease, stage 3 (moderate) - Discharge Medications Home Medications: Oxycodone HCl 10 mg PO QID PRN 11/28/16 [History] Amitriptyline HCl 100 mg PO HS 01/11/17 [History] Atorvastatin [Lipitor] 40 mg PO HS 01/11/17 [History] Baclofen [Baclofen] 20 mg PO QID 01/11/17 [History] Citalopram Hydrobromide [Celexa] 40 mg PO DAILY 01/11/17 [History] Gabapentin [Neurontin] 800 mg PO QID 01/11/17 [History] Metoclopramide [Reglan] 10 mg PO Q6HR PRN 01/11/17 [History] Omeprazole [PriLOSEC] 40 mg PO DAILY 01/11/17 [History] glipiZIDE [Glucotrol] 5 mg PO DAILY 01/11/17 [History] Allergies/Adverse Reactions: 3 Allergy/AdvReac Type Severity Reaction Status Date / Time allantoin Allergy See Verified 07/22/16 22:39 Comments codeine Allergy Difficulty Verified 07/22/16 22:39 Breathing diphenhydramine Allergy Chest Pain Verified 07/22/16 22:39 [From Benadryl] ibuprofen Allergy See Verified 07/22/16 22:39 Comments methylprednisolone Allergy Hives Verified 07/22/16 22:39 [From Solu-Medrol] Penicillins [PCN] Allergy Rash Verified 07/22/16 22:39 phenytoin [From Dilantin] Allergy See Verified 07/22/16 22:39 Comments prednisone Allergy Hives Verified 07/22/16 22:39 Sulfa (Sulfonamide Allergy Rash Verified 07/22/16 22:39 Antibiotics) promethazine [From Phenergan] AdvReac Shakiness Verified 07/22/16 22:39 Procedures/tests Complete & Pending: Procedures Performed prior 72 hours Category Date Time Status CT head/brain wo con [CT] Stat Cat Scan 01/12/17 16:49 Completed MR angio head wo con [MR] Routine MRI 01/12/17 13:37 Draft MR angio neck wo con [MR] Routine MRI 01/12/17 13:37 Draft MR head/brain wo con [MR] Routine MRI 01/11/17 20:42 Draft ECG 12 lead ECG [ECG] AM 0600 Y 01/12/17 06:00 Completed EV SKYLA transesophageal echo Routine Y 01/12/17 17:57 Ordered EV carotid duplex imaging BI Routine Y 01/12/17 20:42 Completed EV echocardiogram Routine Y 01/12/17 20:42 Completed Date of admission: 01/12/17 17:43 Primary care physician: Edmundo Phillips MD Consults: 01/11/17 17:43 Consult to System Development Manager [CONS] Routine Reason for SW Consult: possible cva 01/11/17 20:45 Consult to Physician [CONS] Routine Consulting Provider: Taniya Fatima Reason for Consult: expressive dysphasia Call Completed: Yes 01/11/17 20:46 Consult to Speech Therapy [CONS] Routine Comment: Evaluate, develop and implement POC Reason for Consult: expressive dysphasia Call Completed: No 01/12/17 08:22 Consult to Occupational Therapy [CONS] Routine Comment: Evaluate, develop and implement POC Reason for Consult: recent falls Consult to Physical Therapy [CONS] Routine Comment: Evaluate, develop and implement POC Reason for Consult: recent falls 01/12/17 10:51 Consult to Cardiology [CONS] Routine Comment: Consulting Provider: Cardiology Mona Reason for Consult: elevated trop, intermittent chest pain. Call Completed: Yes Discharging clinician: Ihsan Quiroga Anticipated date of discharge: 01/12/17 - Patient Status Disposition: Transfer Short-Term Hosp Condition: Serious - Discharge Instructions Follow Up With: Edmundo Phillips MD [Primary Care Provider] - Hospital course: Ms. Vieyra is a 56 year old female with hx of HTN presented to ED with expressive aphasia. She was evaluated with concern for CVA and she was subsequently admitted. Ms Vieyra was admitted to [facility]. She remained stable overnight and in the AM had further testing. On MRI she was found to have bilateral embolic CVAs. She had been given Baclofen and Neurontin as well as Oxycodone. She had continued decline in mental status and was transferred to [facility]. Upon arrival she was very somnolent. She would open her eyes to name and was given 2 doses of Narcan. She had some improvement with first dose but continued to become less responsive. She was placed on bipap. She was evaluated by neurology again and decision was made to give her Keppra and transfer to [facility]. She has been accepted and will be transferred by [facility]. - Time Spent with Patient Total time spent providing and/or coordinating discharge services: 45min - Constitutional Vitals: Temp Pulse Resp BP Pulse Ox 97.5 F L 78 15 128/86 98 01/12/17 16:40 01/12/17 17:47 01/12/17 17:47 01/12/17 17:47 01/12/17 16:40 General appearance: Present: A&O X 0 - Head Head exam: Present: normocephalic - Eye Eye exam: Present: PERRL - ENT ENT exam: Present: mucous membranes moist - Respiratory Respiratory exam: Present: CTAB. Absent: rales, rhonchi, wheezes - Cardiovascular Cardiovascular exam: Present: RRR. Absent: tachycardia - GI/Abdominal GI/Abdominal exam: Present: soft - Extremities Exam Extremities exam: Present: warm. Absent: tenderness - Neurological Exam Additional comments: Unresponsive.
[2017-01-12 19:13] LABS: Albumin/Globulin Ratio 0.8 (1.1-2.2); Bilirubin,Total 0.5 mg/dL (0.2-1.2); Calcium 8.8 mg/dL (8.6-10.8); Globulin 3.8 g/dL (2.4-3.5); Potassium 4.2 mEq/L (3.5-4.5); Total Protein 6.8 g/dL (6.0-8.3)
[2017-01-12] MEDS ORDERED: levETIRAcetam 1,000 MG in 0.9 % Sodium Chloride 100 ML IVPB STA (19:24)
--- NOTE | 2017-01-12 19:28 | Neurology Progress Note ---
Date of Encounter: 01/12/17 Time of Encounter: 19:22 Assessment and Plan (1) Acute CVA (cerebrovascular accident) Current Visit: Yes Status: Acute Embolic infarct involving bilateral hemisphere and bilateral cerebellar hemisphere. Likely proximal in etiology. Has acute mental status decline and concerns for continuing embolic stroke involving brain stem or subclinical seizure. Given Keppra 1000mg X1 and discussed the case with [facility] neurology who accepted transfer for aggressive management. Discussed with medical team and will transfer patient to [facility] as instructed. Subjective Principal diagnosis: CVA and unresponsiveness Interval history: Patient seen and examined. She had acute changes in mental status this afternoon at around 4pm and since then her mental status has been declining to a point that she no longer responsive. She had STAT CT of head showing no evidence of cerebral hemorrhage. She was started heparin drip due to embolic stroke evidenced on MRI of brain. She was given Narcan x1 which caused some improvement in her mental status but then back into unresponsiveness. Second Narcan shot did not change any of her mental status. She is currently on BPAP due to hypoxemia and there is no seizure activity. She is not on any sedation but remained unresponsive. Concerns if ongoing embolic stroke, either bilateral or brain stem involvement. However, neurological examination showed no pinpoint pupils. and no high fever Objective - Constitutional Vitals: Temp Pulse Resp BP Pulse Ox 97.5 F L 78 15 128/86 98 01/12/17 16:40 01/12/17 17:47 01/12/17 17:47 01/12/17 17:47 01/12/17 16:40 - Neurological Exam Sensorimotor examination: Present: other (Unable to assess) Motor Examination: Present: other (Flaccid no spontaneous movement) Sensation intact: Present: other (Unable to assess) Reflex and gait examination: other Reflexes: Biceps: 0, Triceps: 0, Brachioradialis: 0, Patella: 0, Achilles: 0 Mental Status Examination: Present: coma (NO response to painful sitimuli. ) Cranial nerve examination: Present: PERRL (symmetric, 3 mm in sizes, sluggishly reactive. Eyes closed no spontaneous blinking) Results - Laboratory Findings CBC and BMP: 01/12/17 18:43 01/12/17 18:43 Abnormal lab findings: Abnormal lab results PT 12.2 Seconds (9.4-12.1) H 01/12/17 03:31 ABG pH 7.30 pH Units (7.32-7.45) L 01/12/17 17:23 ABG pCO2 53 mmHg (35-45) H 01/12/17 17:23 ABG pO2 105 mmHg (85-104) H 01/12/17 17:23 ABG Total CO2 28 mEq/L (20-26) H 01/12/17 17:23 Creatinine 1.72 mg/dL (0.57-1.11) H 01/12/17 18:43 Est GFR ( Amer) 37 (> 60) L 01/12/17 18:43 Est GFR (Non-Af Amer) 31 (> 60) L 01/12/17 18:43 Glucose 188 mg/dL (70-99) H 01/12/17 18:43 POC Glucose 173 (58-89) H 01/12/17 16:43 Calculated Osmolality 303 (280-300) H 01/12/17 18:43 Alkaline Phosphatase 152 Units/L (38-126) H 01/12/17 18:43 Troponin I 0.30 ng/mL (0-0.03) H* 01/12/17 14:43 Albumin 3.0 g/dL (3.5-5.0) L 01/12/17 18:43 Globulin 3.8 g/dL (2.4-3.5) H 01/12/17 18:43 Albumin/Globulin Ratio 0.8 (1.1-2.2) L 01/12/17 18:43 Triglycerides 261 mg/dL (< 150) H 01/12/17 03:31 VLDL Cholesterol, Calc 52 mg/dL (< 31) H 01/12/17 03:31 HDL Cholesterol 28 mg/dL (40-59) L 01/12/17 03:31 Cholesterol/HDL Ratio 5.6 (0-4.9) H 01/12/17 03:31 Consult Discharge Plan - Plan Referrals: Edmundo Phillips MD [Primary Care Provider] -
--- NOTE | 2017-01-12 19:32 | Event Note ---
Date of Encounter: 01/12/17 Time of Encounter: 18:30 Pt transferred from with bilateral acute strokes appearing to be embolic in nature. Had received medications earlier including oxycodone. Mental status had been declining. Upon arrival to [facility] she was arousable. She received 2 doses of Narcan with improvement after first dose but less after second. She continued to be less responsive and was placed on bipap. IV heparin started as well. Exam Arousable Heart reg with no murmur Lungs clear Abd soft She continued to be unresponsive and call was made to [facility]. There is concern for repeat embolization. She is to be transferred to [facility]. CCM 38min
[2017-01-12 20:03] LABS: ABG Base Excess 0 mEq/L (-2 to 3); ABG HCO3 27 mEq/L (21-27); ABG Oxygen Saturation 99 % (95-98); ABG PCO2 49 mmHg (35-45); ABG PH 7.34 pH Units (7.32-7.45); ABG PO2 155 mmHg (85-104); ABG TCO2 28 mEq/L (20-26); Blood Gas Modality CPAP/PS
--- NOTE | 2017-01-13 09:07 | Electrocardiograph Report ---
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
== END 2017-01-12 20:30 | disposition short-term general hospital (02) | DRG 45 ==
LOC: 3BNU → 2NENU 01-12 17:41
PROVIDERS: ADMIT Hospitalist; ATTEND Registered Nurse

== ENCOUNTER 2017-10-11 17:19 | Inpatient (IN) ==
[2017-10-12 01:54] LABS: Basophils # 0.1 K/mcL (0.0-0.2); Basophils % 0.9 %; Eosinophils # 0.4 K/mcL (0.0-0.6); Eosinophils % 2.9 %; Hematocrit 35.6 % (35.3-44.9); Hemoglobin 11.7 g/dL (11.5-15.4); Immature Granulocytes % 2.2 % (0-4); Lymphocytes # 4.1 K/mcL (0.6-4.6); Lymphocytes % 31.4 %; Mean Corpuscular HGB Conc 32.9 g/dL (31.6-35.5); Mean Corpuscular Hemoglobin 32.1 pg (28.0-33.3); Mean Corpuscular Volume 97.5 fL (83.0-100.0); Mean Platelet Volume 11.3 fL (9.4-12.4); Monocytes # 0.7 K/mcL (0.0-1.3); Monocytes % 5.7 %; Neutrophils # 7.4 K/mcL (1.6-8.9); Platelet Count 203 K/mcL (140-400); Red Blood Count 3.65 M/mcL (3.82-4.97); Red Cell Distribution Width 14.7 % (11.5-14.5); Segmented Neutrophils % 56.9 %
[2017-10-12] MEDS ORDERED: Dextrose Gel 15 GM/37.5 ML TUBE PO PRN ×2 (02:09)
[2017-10-12] MEDS ORDERED: D5% in Water 1,000 ML IVC PRN (02:09)
[2017-10-12] MEDS ORDERED: *HR* Dextrose 50 % in Water (Syg) 50 ML SYRINGE IVP PRN (02:09)
--- NOTE | 2017-10-12 02:09 | Internal Med History&Physical ---
Date of Encounter: 10/12/17 Time of Encounter: 02:07 Internal Medicine - H&P: HPI History of present illness: Ms. Vieyra is a 57 year old female who presents today with symptoms of stroke including slurred speech and worsening of her right-sided weakness. Patient's had multiple strokes in the past and states that she does have some residual right-sided weakness however it is worse now. She was admitted to r/o TIA Past Med Surg Social Fam HX - Past Medical History Medical history: arthritis, COPD, CVA, diabetes, hyperlipidemia, renal disease, other Additional medical history: COLITIS, DIVERTICULITIS Psychiatric history: anxiety, depression - Past Surgical History Surgical History: cholecystectomy, hysterectomy, orthopedic, other, other Additional surgical history: back surgies - Social History Smoking Status: Current every day smoker Packs per day: 1 Smokeless Tobacco Status: No Alcohol use: none Drug use: none - Family History Mother Living Status: Hx Family Neurologic Disorders: No Father Living Status: Hx Family Neurologic Disorders: No Daughter Family Member Ethnicity: Non- Living Status: Still Living Hx Family Cardiac Disorders: No Hx Family Respiratory Disorders: No Hx Family Cancer: No Hx Family GI Disorders: No Hx Family Endocrine Disorder: No Hx Family Neuromuscular Disorders: No Hx Family Neurologic Disorders: No Hx Family HEENT Disorders: No Hx Family Autoimmune Disorders: No Internal Medicine - H&P: Meds OxyCODONE Immed Rel [Roxicodone 10 MG] 10 mg PO QID PRN 11/28/16 [History] Amitriptyline HCl 100 mg PO HS 01/11/17 [History] Atorvastatin [Lipitor] 40 mg PO HS 01/11/17 [History] Baclofen [Baclofen] 20 mg PO HS 01/11/17 [History] Gabapentin [Neurontin] 600 mg PO PRN PRN MDD . 01/11/17 [History] Omeprazole [PriLOSEC] 40 mg PO HS 01/11/17 [History] Aspirin [Adult Aspirin Regimen] 81 mg PO HS 10/11/17 [History] Citalopram [CeleXA] 20 mg PO HS 10/11/17 [History] Clopidogrel [Plavix] 75 mg PO HS 10/11/17 [History] GlipiZIDE [Glipizide Xl] 5 mg PO HS 10/11/17 [History] 3 Allergy/AdvReac Type Severity Reaction Status Date / Time allantoin Allergy See Verified 07/22/16 22:39 Comments codeine Allergy Difficulty Verified 07/22/16 22:39 Breathing diphenhydramine Allergy Chest Pain Verified 07/22/16 22:39 [From Benadryl] ibuprofen Allergy See Verified 07/22/16 22:39 Comments methylprednisolone Allergy Hives Verified 07/22/16 22:39 [From Solu-Medrol] Penicillins [PCN] Allergy Rash Verified 07/22/16 22:39 phenytoin [From Dilantin] Allergy See Verified 07/22/16 22:39 Comments prednisone Allergy Hives Verified 07/22/16 22:39 Sulfa (Sulfonamide Allergy Rash Verified 07/22/16 22:39 Antibiotics) promethazine [From Phenergan] AdvReac Shakiness Verified 07/22/16 22:39 All Systems PM: A 10-system review of systems was performed and is negative for pertinent findings except as documented above in the HPI. - Constitutional Vitals: Temp Pulse Resp BP Pulse Ox 97.4 F L 72 16 101/66 91 10/11/17 23:20 10/11/17 23:20 10/11/17 23:20 10/11/17 23:20 10/11/17 23:20 Internal Med - H&P Results - Labs CBC & Chem 7: 10/12/17 01:32 10/12/17 01:32 Labs: Short CBC 10/12/17 Range/Units 01:32 WBC 12.9 H (4.3-11.1) K/mcL Hgb 11.7 D (11.5-15.4) g/dL Hct 35.6 (35.3-44.9) % Plt Count 203 (140-400) K/mcL Neutrophils # 7.4 (1.6-8.9) K/mcL - Assessment and plan (1) CVA (cerebral vascular accident) Current Visit: No Status: Acute Assessment and plan: ASSESSMENT: *TIA PLAN: -CPP x 2 q 8 hr -EKG now and in AM -ASA -UA -Tylenol 650 mg PO q 4-6 hr PRN headache Qualifiers: (2) HTN (hypertension) Current Visit: No Status: Chronic Qualifiers: (3) DM (diabetes mellitus), type 2 Current Visit: No Status: Acute (4) Expressive dysphasia Current Visit: No Status: Acute (5) DVT prophylaxis Current Visit: No Status: Acute - Time Spent With Patient Total time spent is greater than 50% in coordination of care (as documented) at patient's floor/unit and/or counseling patient:
[2017-10-12 02:13] LABS: Albumin 3.4 g/dL (3.5-5.7); Albumin/Globulin Ratio 1.2 (1.1-2.2); Bilirubin,Total 0.3 mg/dL (0.3-1.0); Calcium 8.3 mg/dL (8.6-10.3); Chol/HDL Ratio 5.2 (0-4.9); Globulin 2.9 g/dL (2.4-3.5); Potassium 4.3 mEq/L (3.5-5.1); Total Protein 6.3 g/dL (6.4-8.9)
[2017-10-12] MEDS: *HR* OxyCODONE Immed Rel 5 MG TABLET PO PRN ×3 (06:51→20:12)
[2017-10-12] MEDS: Insulin LISPRO 300 UNITS/3 ML VIAL SQ SCH ×3 (07:55→17:17)
[2017-10-12 09:53] LABS: Estimated Average Glucose 183 mg/dl
--- NOTE | 2017-10-12 17:06 | Neurology - Consult Note ---
Date of Encounter: 10/12/17 Time of Encounter: 16:57 Assessment and Plan (1) CVA (cerebral vascular accident) Current Visit: No Status: Acute Patient with known history of recurrent, multiple strokes, cryptogenic in nature , with extensive work up done in [facility] 7 months ago, who developed acute onset of right sided weakness. There was also an episode of confusion two weeks ago which also concerned for possible CVA. Work up has been extensive including hypercoagulable state, loop recording for cardiac dysarrhythmia which did not identify any abnormalities. 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 Due to recurrent nature of her CVA, it may be forced to turn to anticoagulation therapy due to ineffectiveness of dual antiplatelet therapy. Agree with work up including MRI of brain and MRA of brain and neck. Will consider anticoagulation therapy with coumadin if MRI of brain returns positive for acute ischemic infarct. Will check lactate acid for possible mitochondrial disease. Qualifiers: CVA mechanism: unspecified Qualified Code(s): I63.9 - Cerebral infarction, unspecified History of Present Illness Chief complaint: altered mental status and right sided weakness HPI: Ms. Vieyra is a 57 year old female with PMH significant for CVA, GERD, myofascial pain, history of recurrent cryptogenic strokes, current loop recorder placement, history of carotid artery disease COPD smoker who developed episode o TIA symptoms. She about two weeks ago developed an episode of confusion at a republican. She did not want to go the hospital because 'they do not tell me nothing. This time she developed right sided weakness and concerned for stroke. She is admitted for stroke work up. Patient has history of recurrent infarct during 01/2018, 02/2018 and also 2016 and she was admitted to [facility] all instances. Stroke work up has been extensive. However, no definitive causes identified. The testing including MRI of brain, MRA of brain, DSA, carotid artery duplex, SKYLA, and hypercoagulatable states which were unremarkable, except that she has bilateral hemispheric infarct, right M2/M3 stenosis, left M1 stenosis and carotid artery stenosis as well. Per medical records the loop recording last known was unremarkable. She was kept on combination of aspirin 81mg daily and plavix 75mg daily. She has had CADASIL DNA testing and also gene mutation testing for plavix efficacy at [facility], results not available for review. Currently that patient state that her right sided weakness is getting better. she is still slightly dysarthric. Language content appears intact though. Past Med Surg Social Fam HX - Past Medical History Medical history: arthritis, COPD, CVA, diabetes, hyperlipidemia, renal disease, other Additional medical history: COLITIS, DIVERTICULITIS Psychiatric history: anxiety, depression - Past Surgical History Surgical History: cholecystectomy, hysterectomy, orthopedic, other, other Additional surgical history: back surgies - Social History Smoking Status: Current every day smoker Packs per day: 1 Smokeless Tobacco Status: No Alcohol use: none Drug use: none - Family History Mother Living Status: Hx Family Neurologic Disorders: No Father Living Status: Hx Family Neurologic Disorders: No Daughter Family Member Ethnicity: Non- Living Status: Still Living Hx Family Cardiac Disorders: No Hx Family Respiratory Disorders: No Hx Family Cancer: No Hx Family GI Disorders: No Hx Family Endocrine Disorder: No Hx Family Neuromuscular Disorders: No Hx Family Neurologic Disorders: No Hx Family HEENT Disorders: No Hx Family Autoimmune Disorders: No Medications and Allergies OxyCODONE Immed Rel [Roxicodone 10 MG] 10 mg PO QID PRN 11/28/16 [History] Amitriptyline HCl 100 mg PO HS 01/11/17 [History] Atorvastatin [Lipitor] 40 mg PO HS 01/11/17 [History] Baclofen [Baclofen] 20 mg PO HS 01/11/17 [History] Omeprazole [PriLOSEC] 40 mg PO HS 01/11/17 [History] Aspirin [Adult Aspirin Regimen] 81 mg PO HS 10/11/17 [History] Citalopram [CeleXA] 20 mg PO HS 10/11/17 [History] Clopidogrel [Plavix] 75 mg PO HS 10/11/17 [History] GlipiZIDE [Glipizide Xl] 5 mg PO HS 10/11/17 [History] Gabapentin [Neurontin] 800 mg PO QID 10/12/17 [History] 3 Allergy/AdvReac Type Severity Reaction Status Date / Time allantoin Allergy See Verified 07/22/16 22:39 Comments codeine Allergy Difficulty Verified 07/22/16 22:39 Breathing diphenhydramine Allergy Chest Pain Verified 07/22/16 22:39 [From Benadryl] ibuprofen Allergy See Verified 07/22/16 22:39 Comments methylprednisolone Allergy Hives Verified 07/22/16 22:39 [From Solu-Medrol] Penicillins [PCN] Allergy Rash Verified 07/22/16 22:39 phenytoin [From Dilantin] Allergy See Verified 07/22/16 22:39 Comments prednisone Allergy Hives Verified 07/22/16 22:39 Sulfa (Sulfonamide Allergy Rash Verified 07/22/16 22:39 Antibiotics) promethazine [From Phenergan] AdvReac Shakiness Verified 07/22/16 22:39 All Systems: The remainder of the systems were reviewed and are negative Physical Examination - Vital Signs Vital Signs: Initial Vital Signs Temp Pulse Resp BP Pulse Ox 97.5 F L 86 18 122/98 96 10/11/17 19:04 10/11/17 19:04 10/11/17 19:04 10/11/17 19:04 10/11/17 19:04 - Constitutional General appearance: comfortable - Neurologic Sensorimotor examination: intact Detailed motor examination: grossly full strength in all extremities (slight loss of dexterity noted to both arms. ) Motor examination - right side: 5/5: deltoids, biceps, triceps, wrist flexion, wrist extension, branch general manager, hip flexors, tibialis Anterior, quadriceps, toe extension (EHL), plantarflexion Motor examination - left side: 5/5: deltoids, biceps, triceps, wrist flexion, wrist extension, hip flexors, branch general manager, quadriceps, tibialis Anterior, toe extension (EHL), plantarflexion Detailed sensory examination: intact Posture: other (None) Reflex and gait examination: other (Gait not assessed) Reflexes: Biceps: 1+, Triceps: 1+, Brachioradialis: 1+, Patella: 1+, Achilles: 1 + Mental Status Examination: awake, alert, oriented to person, oriented to place, oriented to time, follows commands appropriately, answers questions appropriately, no agnosia Cranial nerve examination: PERRL, EOMI, visual partida intact, corneal reflexes brisk symmetrically, sensory to face intact, mastication intact, no facial asymmetry is present, no dysarthria (Mild dysarthria noted), hearing is intact symmetrically, soft palate elevates bilaterally upon phonation, gag reflex intact, flexes SCM and trapezius muscles symmetrically with full power, tongue protrudes midline, no atrophy or facial fasiculations present Results - Laboratory Findings CBC and BMP: 10/12/17 01:32 10/12/17 01:32 Abnormal lab findings: Abnormal lab results WBC 12.9 K/mcL (4.3-11.1) H 10/12/17 01:32 RBC 3.65 M/mcL (3.82-4.97) L 10/12/17 01:32 RDW 14.7 % (11.5-14.5) H 10/12/17 01:32 Chloride 113 mEq/L (98-107) H 10/12/17 01:32 BUN 23 mg/dL (6-20) H 10/12/17 01:32 Creatinine 1.89 mg/dL (0.60-1.20) H 10/12/17 01:32 Est GFR ( Amer) 33 (> 60) L 10/12/17 01:32 Est GFR (Non-Af Amer) 27 (> 60) L 10/12/17 01:32 Glucose 176 mg/dL (70-105) H 10/12/17 01:32 Hemoglobin A1c 8.0 % (-5.6) H 10/12/17 01:32 Calcium 8.3 mg/dL (8.6-10.3) L 10/12/17 01:32 AST 8 Units/L (13-39) L 10/12/17 01:32 Alkaline Phosphatase 129 Units/L (34-104) H 10/12/17 01:32 Serum Total Protein 6.3 g/dL (6.4-8.9) L 10/12/17 01:32 Albumin 3.4 g/dL (3.5-5.7) L 10/12/17 01:32 Triglycerides 377 mg/dL (< 150) H 10/12/17 01:32 VLDL Cholesterol, Calc 75 mg/dL (< 31) H 10/12/17 01:32 HDL Cholesterol 27 mg/dL (40-59) L 10/12/17 01:32 Cholesterol/HDL Ratio 5.2 (0-4.9) H 10/12/17 01:32 Consult Discharge Plan - Plan Referrals: Edmundo Phillips MD [Primary Care Provider] -
--- NOTE | 2017-10-12 17:14 | Event Note ---
Date of Encounter: 10/12/17 Time of Encounter: 11:00 Patient was seen and evaluated by nocturnalist earlier this morning and also by myself. She is a 57-year-old female with prior history of CVA who presented to the ER due to concerns for stroke like symptoms. Workup for CVA in progress and neurology consulted for recommendations.
[2017-10-12] MEDS: Aspirin Enteric Coated 81 MG Tablet PO SCH (20:41)
[2017-10-12] MEDS: *HR* GlipiZIDE 5 MG TABLET PO SCH (20:41)
[2017-10-12] MEDS: Gabapentin 400 MG CAPSULE PO PRN (20:45)
[2017-10-12] MEDS: Ondansetron 4 MG/2 ML VIAL IVP PRN (21:09)
[2017-10-13] MEDS: *HR* OxyCODONE Immed Rel 5 MG TABLET PO PRN ×3 (04:04→19:34)
[2017-10-13] MEDS ORDERED: *HR* Heparin 5,000 UNIT/ML VIAL IVP PRN ×2 (08:38)
[2017-10-13] MEDS ORDERED: *HR* Heparin 5,000 UNIT/ML VIAL IVP ONE (08:38)
--- NOTE | 2017-10-13 08:42 | Internal Med Progress Note ---
Date of Encounter: 10/13/17 Time of Encounter: 11:00 - Assessment and plan (1) CVA (cerebral vascular accident) Current Visit: No Status: Acute Assessment and plan: Patient found to have punctate acute ischemic infarct in the right cerebral hemisphere with multiple remote lacunar infarcts and small foci of the right parietal and right occipital encephalomalacia Patient started on Coumadin with heparin drip for bridge Neurology following and appreciate any further recommendations Qualifiers: CVA mechanism: embolism Precerebral and cerebral artery: unspecified cerebral artery Qualified Code(s): I63.40 - Cerebral infarction due to embolism of unspecified cerebral artery (2) Expressive dysphasia Current Visit: No Status: Acute Assessment and plan: Secondary to and management as the above (3) DM (diabetes mellitus), type 2 Current Visit: No Status: Acute Assessment and plan: Continue home medications with sliding-scale insulin Qualifiers: Chronic kidney disease stage: unspecified stage Qualified Code(s): E11.22 - Type 2 diabetes mellitus with diabetic chronic kidney disease; 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 (4) DVT prophylaxis Current Visit: No Status: Acute Assessment and plan: On heparin drip and Coumadin as above - Time Spent With Patient Total time spent is greater than 50% in coordination of care (as documented) at patient's floor/unit and/or counseling patient: - Subjective Interval history: Patient found to have punctate acute ischemic infarct in the right cerebral hemisphere with multiple remote lacunar infarcts and small foci of the right parietal and right occipital encephalomalacia Patient started on Coumadin with heparin drip for bridge - Constitutional Vitals: Temp Pulse Resp BP Pulse Ox 98.0 F 75 16 92/60 90 10/13/17 07:54 10/13/17 07:54 10/13/17 07:54 10/13/17 07:54 10/13/17 07:54 General appearance: Present: no acute distress - Respiratory Respiratory exam: Present: CTAB. Absent: accessory muscle use, rales, rhonchi, wheezes - Cardiovascular Cardiovascular exam: Present: RRR, +S1, +S2. Absent: diastolic murmur, gallop, rubs, systolic murmur Internal Medicine: Result - Labs CBC & Chem 7: 10/13/17 08:50 10/13/17 08:50 - Impressions Impressions Brain MRI 10/12/17 15:50 IMPRESSION: 1. Punctate acute ischemic infarct in the right cerebellar hemisphere. 2. No intracranial hemorrhage or mass effect. 3. Multifocal remote lacunar infarcts and small foci of right parietal and right occipital encephalomalacia. 4. Mild chronic white matter microvascular ischemic changes. D/ / Joce Mcgregor / Joce Mcgregor Interpreting Provider: Joce Mcgregor Head MRA 10/12/17 15:50 IMPRESSION: No flow limiting stenosis of the visualized intracranial arteries. D/ / Joce Mcgregor / Joce Mcgregor Interpreting Provider: Joce Mcgregor Neck MRA 10/12/17 15:50 IMPRESSION: 1. Motion limited evaluation. 2. Moderate irregular narrowing of the V3 segment right vertebral artery may be artifactual due to motion. Otherwise, no evidence of flow-limiting arterial stenosis in the neck. D/ / Joce Mcgregor / Joce Mcgregor Interpreting Provider: Joce Mcgregor Consult Discharge Plan - Plan Referrals: Edmundo Phillips MD [Primary Care Provider] - 10/23/17 11:30 am
[2017-10-13] MEDS: Insulin LISPRO 300 UNITS/3 ML VIAL SQ SCH ×3 (08:48→17:57)
--- NOTE | 2017-10-13 08:49 | Neurology Progress Note ---
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 Work up for CVA mostly were done at [facility] and has been extensive. At this time, would recommend anticoagulation therapy with coumadin with heparin bridge. Would recommend D/C aspirin and plavix to reduce risk of bleeding. Patient is follow up in neurology with me in few weeks. Please continue medical and supportive care. Please call if any questions Qualifiers: CVA mechanism: embolism Precerebral and cerebral artery: unspecified cerebral artery Qualified Code(s): I63.40 - Cerebral infarction due to embolism of unspecified cerebral artery Subjective Principal diagnosis: CVA Interval history: Patient seen and examined. She is feeling better in terms of her right sided weakness. MRI of brain showed punctate ischemic infarct at the right cerebellar hemispher. MRA of brain and neck showed no flow limiting stenosis, and possible irregularity at the right V3 segment. Objective - Constitutional Vitals: Temp Pulse Resp BP Pulse Ox 98.0 F 75 16 92/60 90 10/13/17 07:54 10/13/17 07:54 10/13/17 07:54 10/13/17 07:54 10/13/17 07:54 - Neurological Exam Sensorimotor examination: Present: intact Motor Examination: Present: grossly full strength in all extremities (slight loss of dexterity noted to both arms. ) Motor examination - right side: 5/5: deltoids, biceps, triceps, wrist flexion, wrist extension, clinical implementation specialist, hip flexors, tibialis Anterior, quadriceps, toe extension (EHL), plantarflexion Motor examination - left side: 5/5: deltoids, biceps, triceps, wrist flexion, wrist extension, hip flexors, clinical implementation specialist, quadriceps, tibialis Anterior, toe extension (EHL), plantarflexion Sensation intact: Present: intact Posture: Present: other (None) Reflex and gait examination: other (Gait not assessed) Mental Status Examination: Present: awake, alert, oriented to person, oriented to place, oriented to time, follows commands appropriately, answers questions appropriately, no agnosia Cranial nerve examination: Present: PERRL, EOMI, visual partida intact, corneal reflexes brisk symmetrically, sensory to face intact, mastication intact, no facial asymmetry is present, no dysarthria (Mild dysarthria noted), hearing is intact symmetrically, soft palate elevates bilaterally upon phonation, gag reflex intact, flexes SCM and trapezius muscles symmetrically with full power, tongue protrudes midline, no atrophy or facial fasiculations present Results - Laboratory Findings CBC and BMP: 10/12/17 01:32 10/12/17 01:32 Abnormal lab findings: Abnormal lab results WBC 12.9 K/mcL (4.3-11.1) H 10/12/17 01:32 RBC 3.65 M/mcL (3.82-4.97) L 10/12/17 01:32 RDW 14.7 % (11.5-14.5) H 10/12/17 01:32 Chloride 113 mEq/L (98-107) H 10/12/17 01:32 BUN 23 mg/dL (6-20) H 10/12/17 01:32 Creatinine 1.89 mg/dL (0.60-1.20) H 10/12/17 01:32 Est GFR ( Amer) 33 (> 60) L 10/12/17 01:32 Est GFR (Non-Af Amer) 27 (> 60) L 10/12/17 01:32 Glucose 176 mg/dL (70-105) H 10/12/17 01:32 POC Glucose 172 mg/dL (70-99) H 10/12/17 20:46 Hemoglobin A1c 8.0 % (-5.6) H 10/12/17 01:32 Calcium 8.3 mg/dL (8.6-10.3) L 10/12/17 01:32 AST 8 Units/L (13-39) L 10/12/17 01:32 Alkaline Phosphatase 129 Units/L (34-104) H 10/12/17 01:32 Serum Total Protein 6.3 g/dL (6.4-8.9) L 10/12/17 01:32 Albumin 3.4 g/dL (3.5-5.7) L 10/12/17 01:32 Triglycerides 377 mg/dL (< 150) H 10/12/17 01:32 VLDL Cholesterol, Calc 75 mg/dL (< 31) H 10/12/17 01:32 HDL Cholesterol 27 mg/dL (40-59) L 10/12/17 01:32 Cholesterol/HDL Ratio 5.2 (0-4.9) H 10/12/17 01:32 Consult Discharge Plan - Plan Referrals: Edmundo Phillips MD [Primary Care Provider] -
[2017-10-13 09:05] LABS: Basophils # 0.1 K/mcL (0.0-0.2); Basophils % 0.6 %; Eosinophils # 0.4 K/mcL (0.0-0.6); Eosinophils % 3.6 %; Hematocrit 37.4 % (35.3-44.9); Hematocrit 38.8 % (35.3-44.9); Hemoglobin 12.6 g/dL (11.5-15.4); Immature Granulocytes % 1.4 % (0-4); Lymphocytes # 3.3 K/mcL (0.6-4.6); Lymphocytes % 28.2 %; Mean Corpuscular HGB Conc 32.1 g/dL (31.6-35.5); Mean Corpuscular HGB Conc 32.5 g/dL (31.6-35.5); Mean Corpuscular Hemoglobin 31.7 pg (28.0-33.3); Mean Corpuscular Volume 96.6 fL (83.0-100.0); Mean Corpuscular Volume 97.7 fL (83.0-100.0); Mean Platelet Volume 11.2 fL (9.4-12.4); Monocytes # 0.6 K/mcL (0.0-1.3); Monocytes % 4.9 %; Neutrophils # 7.2 K/mcL (1.6-8.9); Platelet Count 217 K/mcL (140-400); Platelet Count 226 K/mcL (140-400); Red Blood Count 3.87 M/mcL (3.82-4.97); Red Blood Count 3.97 M/mcL (3.82-4.97); Red Cell Distribution Width 14.6 % (11.5-14.5); Red Cell Distribution Width 14.7 % (11.5-14.5); Segmented Neutrophils % 61.3 %
[2017-10-13 09:13] LABS: INR 1.1
[2017-10-13 09:16] LABS: Activated Partial Thrombo Time 34.8 Seconds (26.0-36.0)
[2017-10-13 09:20] LABS: Calcium 8.8 mg/dL (8.6-10.3); Potassium 4.3 mEq/L (3.5-5.1)
[2017-10-13] MEDS: Heparin 25,000 UNIT/500 ML D5W 25,000 UNIT/500 ML BAG IVC SCH (10:31)
[2017-10-13 15:29] LABS: Heparin anti-factor XA UFH 0.95 IU/mL (0.30-0.70)
[2017-10-13] MEDS ORDERED: *HR* Warfarin 5 MG TABLET PO ONE (18:00)
[2017-10-13] MEDS: Warfarin perPT PO SCH (18:03)
[2017-10-13] MEDS: Aspirin Enteric Coated 81 MG Tablet PO SCH (21:02)
[2017-10-13] MEDS: *HR* GlipiZIDE 5 MG TABLET PO SCH (21:02)
[2017-10-13] MEDS: Ondansetron 4 MG/2 ML VIAL IVP PRN (21:06)
[2017-10-14] MEDS: *HR* OxyCODONE Immed Rel 5 MG TABLET PO PRN ×4 (02:37→23:42)
[2017-10-14] MEDS: Insulin LISPRO 300 UNITS/3 ML VIAL SQ SCH ×3 (08:37→17:18)
[2017-10-14] MEDS: Heparin 25,000 UNIT/500 ML D5W 25,000 UNIT/500 ML BAG IVC SCH (08:48)
--- NOTE | 2017-10-14 09:57 | Internal Med Progress Note ---
Date of Encounter: 10/14/17 Time of Encounter: 11:00 - Assessment and plan (1) CVA (cerebral vascular accident) Current Visit: No Status: Acute Assessment and plan: Patient found to have punctate acute ischemic infarct in the right cerebral hemisphere with multiple remote lacunar infarcts and small foci of the right parietal and right occipital encephalomalacia Patient started on Coumadin with heparin drip for bridge INR still subtherapeutic this morning at 1.1 Qualifiers: CVA mechanism: embolism Precerebral and cerebral artery: unspecified cerebral artery Qualified Code(s): I63.40 - Cerebral infarction due to embolism of unspecified cerebral artery (2) Expressive dysphasia Current Visit: No Status: Acute Assessment and plan: Secondary to and management as the above (3) CKD (chronic kidney disease) stage 3, GFR 30-59 ml/min Current Visit: Yes Status: Acute Assessment and plan: Stable; continue to monitor (4) DM (diabetes mellitus), type 2 Current Visit: No Status: Acute Assessment and plan: Continue home medications with sliding-scale insulin Qualifiers: Chronic kidney disease stage: unspecified stage Qualified Code(s): E11.22 - Type 2 diabetes mellitus with diabetic chronic kidney disease; 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 (5) Obesity (BMI 30-39.9) Current Visit: No Status: Acute Assessment and plan: Lifestyle modifications (6) DVT prophylaxis Current Visit: No Status: Acute Assessment and plan: On heparin drip and Coumadin as above - Time Spent With Patient Total time spent is greater than 50% in coordination of care (as documented) at patient's floor/unit and/or counseling patient: - Subjective Interval history: Patient found to have punctate acute ischemic infarct in the right cerebral hemisphere with multiple remote lacunar infarcts and small foci of the right parietal and right occipital encephalomalacia Patient started on Coumadin with heparin drip for bridge INR still subtherapeutic this morning at 1.1 - Constitutional Vitals: Temp Pulse Resp BP Pulse Ox 97.8 F 73 16 97/55 95 10/14/17 07:54 10/14/17 07:54 10/14/17 07:54 10/14/17 07:54 10/14/17 07:54 General appearance: Present: no acute distress - Respiratory Respiratory exam: Present: CTAB. Absent: accessory muscle use, rales, rhonchi, wheezes - Cardiovascular Cardiovascular exam: Present: RRR, +S1, +S2. Absent: diastolic murmur, gallop, rubs, systolic murmur Internal Medicine: Result - Labs CBC & Chem 7: 10/14/17 12:41 10/14/17 12:11 - ABG Interpretation ABG results: PT/INR, D-dimer PT 12.0 Seconds (9.4-12.1) 10/13/17 08:50 Consult Discharge Plan - Plan Referrals: Edmundo Phillips MD [Primary Care Provider] - 10/23/17 11:30 am
[2017-10-14 13:02] LABS: Basophils # 0.1 K/mcL (0.0-0.2); Basophils % 0.8 %; Eosinophils # 0.3 K/mcL (0.0-0.6); Eosinophils % 2.7 %; Hematocrit 36.1 % (35.3-44.9); Hemoglobin 11.8 g/dL (11.5-15.4); Immature Granulocytes % 1.5 % (0-4); Lymphocytes # 2.5 K/mcL (0.6-4.6); Lymphocytes % 25.1 %; Mean Corpuscular HGB Conc 32.7 g/dL (31.6-35.5); Mean Corpuscular Hemoglobin 30.8 pg (28.0-33.3); Mean Corpuscular Volume 94.3 fL (83.0-100.0); Mean Platelet Volume 11.2 fL (9.4-12.4); Monocytes # 0.5 K/mcL (0.0-1.3); Monocytes % 4.7 %; Neutrophils # 6.4 K/mcL (1.6-8.9); Platelet Count 218 K/mcL (140-400); Red Blood Count 3.83 M/mcL (3.82-4.97); Red Cell Distribution Width 14.5 % (11.5-14.5); Segmented Neutrophils % 65.2 %
[2017-10-14 13:11] LABS: INR 1.1; Prothrombin Time 12.5 Seconds (9.4-12.1)
[2017-10-14 13:20] LABS: Calcium 9.1 mg/dL (8.6-10.3); Potassium 4.5 mEq/L (3.5-5.1)
[2017-10-14] MEDS: Ondansetron 4 MG/2 ML VIAL IVP PRN (17:18)
[2017-10-14] MEDS ORDERED: *HR* Warfarin 5 MG TABLET PO ONE (18:00)
[2017-10-14] MEDS: Warfarin perPT PO SCH (20:00)
[2017-10-14] MEDS: *HR* GlipiZIDE 5 MG TABLET PO SCH (20:00)
[2017-10-14] MEDS: Gabapentin 400 MG CAPSULE PO PRN (20:05)
[2017-10-15] MEDS: Ondansetron 4 MG/2 ML VIAL IVP PRN ×3 (00:54→21:28)
[2017-10-15] MEDS: Heparin 25,000 UNIT/500 ML D5W 25,000 UNIT/500 ML BAG IVC SCH ×2 (04:28→17:07)
[2017-10-15] MEDS: *HR* OxyCODONE Immed Rel 5 MG TABLET PO PRN ×3 (05:42→20:48)
[2017-10-15 06:35] LABS: INR 1.3; Prothrombin Time 14.4 Seconds (9.4-12.1)
--- NOTE | 2017-10-15 08:17 | Internal Med Progress Note ---
Date of Encounter: 10/15/17 Time of Encounter: 11:00 - Assessment and plan (1) CVA (cerebral vascular accident) Current Visit: No Status: Acute Assessment and plan: Patient found to have punctate acute ischemic infarct in the right cerebral hemisphere with multiple remote lacunar infarcts and small foci of the right parietal and right occipital encephalomalacia Patient started on Coumadin with heparin drip for bridge INR still subtherapeutic this morning at 1.3 Qualifiers: CVA mechanism: embolism Precerebral and cerebral artery: unspecified cerebral artery Qualified Code(s): I63.40 - Cerebral infarction due to embolism of unspecified cerebral artery (2) Expressive dysphasia Current Visit: No Status: Acute Assessment and plan: Secondary to and management as the above (3) CKD (chronic kidney disease) stage 3, GFR 30-59 ml/min Current Visit: Yes Status: Acute Assessment and plan: Stable; continue to monitor (4) DM (diabetes mellitus), type 2 Current Visit: No Status: Acute Assessment and plan: Continue home medications with sliding-scale insulin Qualifiers: Chronic kidney disease stage: unspecified stage Qualified Code(s): E11.22 - Type 2 diabetes mellitus with diabetic chronic kidney disease; 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 (5) Obesity (BMI 30-39.9) Current Visit: No Status: Acute Assessment and plan: Lifestyle modifications (6) DVT prophylaxis Current Visit: No Status: Acute Assessment and plan: On heparin drip and Coumadin as above - Time Spent With Patient Total time spent is greater than 50% in coordination of care (as documented) at patient's floor/unit and/or counseling patient: - Subjective Interval history: Patient found to have punctate acute ischemic infarct in the right cerebral hemisphere with multiple remote lacunar infarcts and small foci of the right parietal and right occipital encephalomalacia Patient started on Coumadin with heparin drip for bridge INR still subtherapeutic this morning at 1.3 - Constitutional Vitals: Temp Pulse Resp BP Pulse Ox 98.3 F 58 18 86/62 94 10/15/17 07:38 10/15/17 07:38 10/15/17 07:38 10/15/17 07:38 10/15/17 07:38 General appearance: Present: no acute distress - Respiratory Respiratory exam: Present: CTAB. Absent: accessory muscle use, rales, rhonchi, wheezes - Cardiovascular Cardiovascular exam: Present: RRR, +S1, +S2. Absent: diastolic murmur, gallop, rubs, systolic murmur Internal Medicine: Result - Labs CBC & Chem 7: 10/15/17 05:57 10/15/17 05:57 Labs: Short CBC 10/14/17 Range/Units 12:41 WBC 9.9 (4.3-11.1) K/mcL Hgb 11.8 (11.5-15.4) g/dL Hct 36.1 (35.3-44.9) % Plt Count 218 (140-400) K/mcL Neutrophils # 6.4 (1.6-8.9) K/mcL BMP 10/14/17 12:11 Sodium 138 Potassium 4.5 Chloride 106 Carbon Dioxide 25 BUN 25 H Creatinine 1.77 H Glucose 106 H Calcium 9.1 - ABG Interpretation ABG results: PT/INR, D-dimer PT 14.4 Seconds (9.4-12.1) H 10/15/17 05:57 Consult Discharge Plan - Plan Referrals: Edmundo Phillips MD [Primary Care Provider] - 10/23/17 11:30 am
[2017-10-15 08:33] LABS: Calcium 8.7 mg/dL (8.6-10.3); Potassium 4.2 mEq/L (3.5-5.1)
[2017-10-15 08:41] LABS: Basophils # 0.1 K/mcL (0.0-0.2); Basophils % 0.8 %; Eosinophils # 0.4 K/mcL (0.0-0.6); Eosinophils % 3.1 %; Hematocrit 37.4 % (35.3-44.9); Hemoglobin 12.3 g/dL (11.5-15.4); Immature Granulocytes % 2.2 % (0-4); Lymphocytes # 3.6 K/mcL (0.6-4.6); Lymphocytes % 30.6 %; Mean Corpuscular HGB Conc 32.9 g/dL (31.6-35.5); Mean Corpuscular Volume 97.4 fL (83.0-100.0); Mean Platelet Volume 11.9 fL (9.4-12.4); Monocytes # 0.7 K/mcL (0.0-1.3); Monocytes % 5.9 %; Neutrophils # 6.7 K/mcL (1.6-8.9); Platelet Count 244 K/mcL (140-400); Red Blood Count 3.84 M/mcL (3.82-4.97); Red Cell Distribution Width 14.4 % (11.5-14.5); Segmented Neutrophils % 57.4 %
[2017-10-15] MEDS: Insulin LISPRO 300 UNITS/3 ML VIAL SQ SCH ×3 (09:06→17:09)
--- NOTE | 2017-10-15 13:47 | Neurology Progress Note ---
Date of Encounter: 10/15/17 Time of Encounter: 09:30 Assessment and Plan (1) Difficulty with speech Current Visit: Yes Status: Acute This patient who has an history of flow multiple stroke on already had extensive workup at [facility] did have a positive MRI at this admission had these increasing symptoms of slurring speech this morning without any new focal findings on her current neurological examination and negative CT scan of the head. At this time it is not clear that indeed her symptoms are are new or perhaps just a worsening of her symptoms as far as his speech is concern I do not think that this is a true aphasia in fact during the conversation she was able to talk quite is mostly without much difficulty but on examination she noted to have difficulty in saying certain words. She did acknowledges that she is been under a lot of stress since the of her in December and is been having increasing symptoms since then. Regardless she did have a multiple risk factors for a stroke and already had positive MRI and multiple but other issues and concern regardless at the moment she is already on antiplatelet therapy as well as and heparin bridge and on coumadin, keep it therapeutic INR< as no evidence of any bleed on CT scan she may continue on it. Continue to treat other underlying medical issues perhaps may benefit from low- dose anxiolytic agent. Stable from neurology standpoint. She should be follow up at [facility] neurology after discharge from the hospital (2) Acute CVA (cerebrovascular accident) Current Visit: No Status: Acute Subjective Principal diagnosis: CVA Interval history: This patient was been admitted earlier with the symptoms of a stroke found to have a punctate infarct on the MRI scan with a history of cardiac t issues she is also on heparin this morning noted to have increased slurring of the speech some neurology service was reconsulted. CT scan of the head did not show any new bleed or infarct. Currently patient is a stable having some slurring of the speech but does not seems to be consistent no new focal motor weakness reported on examination According to the records this patient Patient with known history of recurrent, multiple strokes, cryptogenic in nature, with extensive work up done in [facility] 7 months ago, who developed acute onset of right sided weakness. There was also an episode of confusion two weeks ago which also concerned for possible CVA. Work up has been extensive including hypercoagulable state, loop recording for cardiac dysarrhythmia which did not identify any abnormalities. 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 Due to recurrent nature of her CVA, it may be forced to turn to anticoagulation therapy due to ineffectiveness of dual antiplatelet therapy. she also had CADASIL testing at [facility], results are not available , Objective - Constitutional Vitals: Temp Pulse Resp BP Pulse Ox 98.1 F 79 16 84/51 95 10/15/17 12:08 10/15/17 12:08 10/15/17 12:08 10/15/17 12:08 10/15/17 12:08 - Neurological Exam Sensorimotor examination: Present: intact Motor Examination: Present: grossly full strength in all extremities (slight loss of dexterity noted to both arms. ) Motor examination - right side: 5/5: deltoids, biceps, triceps, wrist flexion, wrist extension, lace mender, hip flexors, tibialis Anterior, quadriceps, toe extension (EHL), plantarflexion Motor examination - left side: 5/5: deltoids, biceps, triceps, wrist flexion, wrist extension, hip flexors, lace mender, quadriceps, tibialis Anterior, toe extension (EHL), plantarflexion Sensation intact: Present: intact Posture: Present: other (None) Reflex and gait examination: other (Gait not assessed) Reflexes: Biceps: 1+, Triceps: 1+, Brachioradialis: 1+, Patella: 1+, Achilles: 1 + Mental Status Examination: Present: awake, alert, oriented to person, oriented to place, oriented to time, follows commands appropriately, answers questions appropriately, no agnosia Cranial nerve examination: Present: PERRL, EOMI, visual partida intact, corneal reflexes brisk symmetrically, sensory to face intact, mastication intact, no facial asymmetry is present, no dysarthria (Mild dysarthria noted), hearing is intact symmetrically, soft palate elevates bilaterally upon phonation, gag reflex intact, flexes SCM and trapezius muscles symmetrically with full power, tongue protrudes midline, no atrophy or facial fasiculations present Cerebellar examination: Present: no dysmetria Results - Laboratory Findings CBC and BMP: 10/15/17 05:57 10/15/17 05:57 Abnormal lab findings: Abnormal lab results WBC 11.6 K/mcL (4.3-11.1) H 10/15/17 05:57 PT 14.4 Seconds (9.4-12.1) H 10/15/17 05:57 APTT 85.6 Seconds (26.0-36.0) H 10/14/17 22:50 Heparin Anti-Xa, Unfract 0.95 IU/mL (0.30-0.70) H 10/13/17 14:20 BUN 22 mg/dL (6-20) H 10/15/17 05:57 Creatinine 1.74 mg/dL (0.60-1.20) H 10/15/17 05:57 Est GFR ( Amer) 37 (> 60) L 10/15/17 05:57 Est GFR (Non-Af Amer) 30 (> 60) L 10/15/17 05:57 Glucose 218 mg/dL (70-105) H 10/15/17 05:57 POC Glucose 171 mg/dL (70-99) H 10/14/17 16:39 Hemoglobin A1c 8.0 % (-5.6) H 10/12/17 01:32 AST 8 Units/L (13-39) L 10/12/17 01:32 Alkaline Phosphatase 129 Units/L (34-104) H 10/12/17 01:32 Serum Total Protein 6.3 g/dL (6.4-8.9) L 10/12/17 01:32 Albumin 3.4 g/dL (3.5-5.7) L 10/12/17 01:32 Triglycerides 377 mg/dL (< 150) H 10/12/17 01:32 VLDL Cholesterol, Calc 75 mg/dL (< 31) H 10/12/17 01:32 HDL Cholesterol 27 mg/dL (40-59) L 10/12/17 01:32 Cholesterol/HDL Ratio 5.2 (0-4.9) H 10/12/17 01:32 - Diagnostic Findings Additional findings: CT scan this morning did not show any acute bleed or new infarct MRI of the brain earlier shows 1. Punctate acute ischemic infarct in the right cerebellar hemisphere. 2. No intracranial hemorrhage or mass effect. 3. Multifocal remote lacunar infarcts and small foci of right parietal and right occipital encephalomalacia. 4. Mild chronic white matter microvascular ischemic changes. MRA of the head and neck negative for any large vessel critical stenosis Consult Discharge Plan - Plan Referrals: Edmundo Phillips MD [Primary Care Provider] - 10/23/17 11:30 am
[2017-10-15] MEDS ORDERED: *HR* Warfarin 5 MG TABLET PO ONE (18:00)
[2017-10-15] MEDS: Warfarin perPT PO SCH (18:15)
[2017-10-15 19:39] LABS: Bilirubin,Urine Negative (Negative); Blood,Urine Negative (Negative); Clarity,Urine Clear (Clear); Color,Urine Yellow (Yellow); Glucose,Urine (UA) Normal (Normal); Ketones,Urine Negative (Negative); Leukocyte Esterase,Urine Negative (Negative); Nitrite,Urine Negative (Negative); Protein,Urine Negative (Neg-Trace); Specific Gravity,Urine 1.014 (1.010-1.025); Urobilinogen,Urine Normal (Normal)
[2017-10-15] MEDS: *HR* GlipiZIDE 5 MG TABLET PO SCH (20:48)
[2017-10-15] MEDS: Gabapentin 400 MG CAPSULE PO PRN (20:52)
[2017-10-15] MEDS ORDERED: Acetaminophen 325 MG TABLET PO PRN (23:35)
[2017-10-16] MEDS: *HR* OxyCODONE Immed Rel 5 MG TABLET PO PRN ×4 (02:55→23:32)
[2017-10-16] MEDS: Heparin 25,000 UNIT/500 ML D5W 25,000 UNIT/500 ML BAG IVC SCH ×2 (03:00→23:33)
[2017-10-16 07:32] LABS: INR 1.8; Prothrombin Time 19.8 Seconds (9.4-12.1)
[2017-10-16] MEDS: Insulin LISPRO 300 UNITS/3 ML VIAL SQ SCH ×3 (08:08→17:29)
[2017-10-16 10:44] LABS: Basophils # 0.1 K/mcL (0.0-0.2); Basophils % 0.9 %; Eosinophils # 0.3 K/mcL (0.0-0.6); Eosinophils % 2.5 %; Hematocrit 35.8 % (35.3-44.9); Hemoglobin 11.6 g/dL (11.5-15.4); Immature Granulocytes % 2.3 % (0-4); Lymphocytes # 3.2 K/mcL (0.6-4.6); Lymphocytes % 25.6 %; Mean Corpuscular HGB Conc 32.4 g/dL (31.6-35.5); Mean Corpuscular Hemoglobin 31.4 pg (28.0-33.3); Mean Corpuscular Volume 96.8 fL (83.0-100.0); Mean Platelet Volume 11.7 fL (9.4-12.4); Monocytes # 0.8 K/mcL (0.0-1.3); Monocytes % 6.5 %; Neutrophils # 7.7 K/mcL (1.6-8.9); Platelet Count 246 K/mcL (140-400); Red Cell Distribution Width 14.6 % (11.5-14.5); Segmented Neutrophils % 62.2 %
--- NOTE | 2017-10-16 11:09 | Neurology Progress Note ---
Date of Encounter: 10/16/17 Time of Encounter: 07:35 Assessment and Plan (1) Difficulty with speech Current Visit: Yes Status: Acute This patient who has an history of flow multiple stroke on already had extensive workup at [facility] did have a positive MRI at this admission had these increasing symptoms of slurring speech this morning without any new focal findings on her current neurological examination and negative CT scan of the head. At this time it is not clear that indeed her symptoms are are new or perhaps just a worsening of her symptoms as far as his speech is concern I do not think that this is a true aphasia in fact during the conversation she was able to talk quite is mostly without much difficulty but on examination she noted to have difficulty in saying certain words. She did acknowledges that she is been under a lot of stress since the of her in December and is been having increasing symptoms since then. Regardless she did have a multiple risk factors for a stroke and already had positive MRI and multiple but other issues and concern regardless at the moment she is already on antiplatelet therapy as well as and heparin bridge and on coumadin, keep it therapeutic INR< as no evidence of any bleed on CT scan she may continue on it. Continue to treat other underlying medical issues perhaps may benefit from low- dose anxiolytic agent. Stable from neurology standpoint. She should be follow up at [facility] neurology after discharge from the hospital Currently no new symptoms a stable suggest to continue on same treatment other workup is her primary care physician We will sign off call if needed (2) Acute CVA (cerebrovascular accident) Current Visit: No Status: Acute Subjective Principal diagnosis: CVA Interval history: patient is stable did not have any other new symptoms no headaches no new difficulty with his speech no new focal motor weakness Objective - Constitutional Vitals: Temp Pulse Resp BP Pulse Ox 98.2 F 82 20 105/70 98 10/16/17 11:02 10/16/17 11:02 10/16/17 11:02 10/16/17 11:02 10/16/17 11:02 - Neurological Exam Sensorimotor examination: Present: intact Motor Examination: Present: grossly full strength in all extremities (slight loss of dexterity noted to both arms. 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, quadriceps, tibialis Anterior, toe extension (EHL), plantarflexion Sensation intact: Present: intact Posture: Present: other (None) Reflex and gait examination: other (Gait not assessed) Mental Status Examination: Present: awake, alert, oriented to person, oriented to place, oriented to time, follows commands appropriately, answers questions appropriately, no agnosia Cranial nerve examination: Present: PERRL, EOMI, visual partida intact, corneal reflexes brisk symmetrically, sensory to face intact, mastication intact, no facial asymmetry is present, no dysarthria (Mild dysarthria noted), hearing is intact symmetrically, soft palate elevates bilaterally upon phonation, gag reflex intact, flexes SCM and trapezius muscles symmetrically with full power, tongue protrudes midline, no atrophy or facial fasiculations present Cerebellar examination: Present: no dysmetria Results - Laboratory Findings CBC and BMP: 10/16/17 06:44 10/15/17 05:57 Abnormal lab findings: Abnormal lab results WBC 12.3 K/mcL (4.3-11.1) H 10/16/17 06:44 RBC 3.70 M/mcL (3.82-4.97) L 10/16/17 06:44 RDW 14.6 % (11.5-14.5) H 10/16/17 06:44 PT 19.8 Seconds (9.4-12.1) H 10/16/17 06:44 APTT 85.4 Seconds (26.0-36.0) H 10/15/17 23:22 Heparin Anti-Xa, Unfract 0.95 IU/mL (0.30-0.70) H 10/13/17 14:20 BUN 22 mg/dL (6-20) H 10/15/17 05:57 Creatinine 1.74 mg/dL (0.60-1.20) H 10/15/17 05:57 Est GFR ( Amer) 37 (> 60) L 10/15/17 05:57 Est GFR (Non-Af Amer) 30 (> 60) L 10/15/17 05:57 Glucose 218 mg/dL (70-105) H 10/15/17 05:57 POC Glucose 156 mg/dL (70-99) H 10/15/17 20:57 Hemoglobin A1c 8.0 % (-5.6) H 10/12/17 01:32 AST 8 Units/L (13-39) L 10/12/17 01:32 Alkaline Phosphatase 129 Units/L (34-104) H 10/12/17 01:32 Serum Total Protein 6.3 g/dL (6.4-8.9) L 10/12/17 01:32 Albumin 3.4 g/dL (3.5-5.7) L 10/12/17 01:32 Triglycerides 377 mg/dL (< 150) H 10/12/17 01:32 VLDL Cholesterol, Calc 75 mg/dL (< 31) H 10/12/17 01:32 HDL Cholesterol 27 mg/dL (40-59) L 10/12/17 01:32 Cholesterol/HDL Ratio 5.2 (0-4.9) H 10/12/17 01:32 Consult Discharge Plan - Plan Referrals: Edmundo Phillips MD [Primary Care Provider] - 10/23/17 11:30 am
[2017-10-16 14:24] LABS: Potassium 4.5 mEq/L (3.5-5.1)
[2017-10-16 15:42] LABS: Calcium 8.8 mg/dL (8.6-10.3)
[2017-10-16] MEDS: Warfarin perPT PO SCH (16:39)
[2017-10-16] MEDS ORDERED: *HR* Warfarin 5 MG TABLET PO ONE (18:00)
[2017-10-16] MEDS: Ondansetron 4 MG/2 ML VIAL IVP PRN (18:11)
--- NOTE | 2017-10-16 18:25 | Internal Med Progress Note ---
Date of Encounter: 10/16/17 Time of Encounter: 11:00 - Assessment and plan (1) CVA (cerebral vascular accident) Current Visit: No Status: Acute Assessment and plan: Patient found to have punctate acute ischemic infarct in the right cerebral hemisphere with multiple remote lacunar infarcts and small foci of the right parietal and right occipital encephalomalacia Patient started on Coumadin with heparin drip for bridge INR still subtherapeutic this morning at 1.8 Will discharge patient once INR therapeutic at 2.0 or greater Qualifiers: CVA mechanism: embolism Precerebral and cerebral artery: unspecified cerebral artery Qualified Code(s): I63.40 - Cerebral infarction due to embolism of unspecified cerebral artery (2) Expressive dysphasia Current Visit: No Status: Acute Assessment and plan: Secondary to and management as the above (3) CKD (chronic kidney disease) stage 3, GFR 30-59 ml/min Current Visit: Yes Status: Acute Assessment and plan: Stable; continue to monitor (4) DM (diabetes mellitus), type 2 Current Visit: No Status: Acute Assessment and plan: Continue home medications with sliding-scale insulin Qualifiers: Chronic kidney disease stage: unspecified stage Qualified Code(s): E11.22 - Type 2 diabetes mellitus with diabetic chronic kidney disease; 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 (5) Obesity (BMI 30-39.9) Current Visit: No Status: Acute Assessment and plan: Lifestyle modifications (6) DVT prophylaxis Current Visit: No Status: Acute Assessment and plan: On heparin drip and Coumadin as above - Time Spent With Patient Total time spent is greater than 50% in coordination of care (as documented) at patient's floor/unit and/or counseling patient: - Subjective Interval history: Patient found to have punctate acute ischemic infarct in the right cerebral hemisphere with multiple remote lacunar infarcts and small foci of the right parietal and right occipital encephalomalacia Patient started on Coumadin with heparin drip for bridge INR still subtherapeutic this morning at 1.8 - Constitutional Vitals: Temp Pulse Resp BP Pulse Ox 98.4 F 78 18 90/55 91 10/16/17 15:10/16/17 15:10/16/17 15:10/16/17 15:10/16/17 15:09 General appearance: Present: no acute distress - Respiratory Respiratory exam: Present: CTAB. Absent: accessory muscle use, rales, rhonchi, wheezes - Cardiovascular Cardiovascular exam: Present: RRR, +S1, +S2. Absent: diastolic murmur, gallop, rubs, systolic murmur Internal Medicine: Result - Labs CBC & Chem 7: 10/16/17 06:44 10/16/17 06:44 Labs: Short CBC 10/16/17 Range/Units 06:44 WBC 12.3 H (4.3-11.1) K/mcL Hgb 11.6 (11.5-15.4) g/dL Hct 35.8 (35.3-44.9) % Plt Count 246 (140-400) K/mcL Neutrophils # 7.7 (1.6-8.9) K/mcL BMP 10/16/17 06:44 Sodium 137 Potassium 4.5 Chloride 103 Carbon Dioxide 26 BUN 24 H Creatinine 1.99 H Glucose 161 H Calcium 8.8 Urine 10/15/17 Range/Units 19:30 Urine Color Yellow (Yellow) Urine Clarity Clear (Clear) Urine pH 6.0 (5.0-8.0) pH Units Ur Specific [place] 1.014 (1.010-1.025) Urine Protein Negative (Neg-Trace) mg/dL Urine Glucose (UA) Normal (Normal) mg/dL - ABG Interpretation ABG results: PT/INR, D-dimer PT 19.8 Seconds (9.4-12.1) H 10/16/17 06:44 Consult Discharge Plan - Plan Referrals: Edmundo Phillips MD [Primary Care Provider] - 10/23/17 11:30 am
[2017-10-16] MEDS: Gabapentin 400 MG CAPSULE PO PRN (20:05)
[2017-10-16] MEDS: *HR* GlipiZIDE 5 MG TABLET PO SCH (20:05)
[2017-10-16] MEDS ORDERED: Simethicone 80 MG TAB.CHEW PO PRN (23:45)
[2017-10-17 07:00] LABS: INR 2.1; Prothrombin Time 24.2 Seconds (9.4-12.1)
[2017-10-17] MEDS: Insulin LISPRO 300 UNITS/3 ML VIAL SQ SCH ×2 (08:34→12:30)
[2017-10-17] MEDS: *HR* OxyCODONE Immed Rel 5 MG TABLET PO PRN ×2 (09:51→15:52)
[2017-10-17] MEDS: Ondansetron 4 MG/2 ML VIAL IVP PRN (09:51)
--- NOTE | 2017-10-17 14:11 | Discharge Summary ---
- NOTES TO OUTPATIENT PROVIDER Notes to Outpatient Provider: Patient is to have a follow-up PT INR checked tomorrow 10/18/2017 and further dosing of Coumadin needs to be adjusted based on that. Orders not resulted at time of discharge: Pending orders 10/18/17 04:00 INR/PT [Prothrombin Time INR] [COAG] AM 0400 10/18/17 04:16 PTT [Activated Partial Thrombo Time] [COAG] Timed 10/19/17 04:00 INR/PT [Prothrombin Time INR] [COAG] AM 0400 Date of Encounter: 10/17/17 Time of Encounter: 14:05 - Discharge Diagnosis (1) CVA (cerebral vascular accident) Priority: Primary Status: Acute Qualifiers: CVA mechanism: embolism Precerebral and cerebral artery: unspecified cerebral artery Qualified Code(s): I63.40 - Cerebral infarction due to embolism of unspecified cerebral artery (2) DVT prophylaxis Priority: Secondary Status: Acute (3) DM (diabetes mellitus), type 2 Priority: Secondary Status: Acute Qualifiers: Chronic kidney disease stage: unspecified stage Qualified Code(s): E11.22 - Type 2 diabetes mellitus with diabetic chronic kidney disease; Z79.4 - long term (current) use of insulin (4) Obesity (BMI 30-39.9) Priority: Secondary Status: Acute (5) Expressive dysphasia Priority: Secondary Status: Acute (6) CKD (chronic kidney disease) stage 3, GFR 30-59 ml/min Priority: Secondary Status: Acute Hospital course: Ms. 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 She was initially admitted to rule out TIA. The patient was found to have punctate acute ischemic infarction in R cerebral hemisphere and also evidence of remote lacunar infarcts and small foci in the right parietal and right occipital and region with encephalomalacia. Since she had these on aspirin and Plavix, neurology recommended discontinuing both aspirin and Plavix and starting her on anticoagulation with Coumadin. The patient was bridged in- house with IV heparin and her INR today is greater than 2 and hence she is ready for discharge. I have recommended her to take 4 mg of Coumadin tonight as well as tomorrow. She is going to check her INR tomorrow and discuss with Dr. Phillips's office for further treatment and dosing. I will also discuss this with Dr Phillips directly Discharge discussed with: patient - Time Spent with Patient Total time spent providing and/or coordinating discharge services: Greater than 30 minutes (Discussed plan of care with primary care physician) - Discharge Medications Prescriptions: Warfarin [Coumadin] 4 mg PO 1800 3 Days #12 tablet Home Medications: OxyCODONE Immed Rel [Roxicodone 10 MG] 10 mg PO QID PRN 11/28/16 [History] Amitriptyline HCl 100 mg PO HS 01/11/17 [History] Atorvastatin [Lipitor] 40 mg PO HS 01/11/17 [History] Baclofen 20 mg PO HS 01/11/17 [History] Omeprazole [PriLOSEC] 40 mg PO HS 01/11/17 [History] Citalopram [CeleXA] 20 mg PO HS 10/11/17 [History] GlipiZIDE [Glipizide Xl] 5 mg PO HS 10/11/17 [History] Acetaminophen [Tylenol] 650 mg PO Q6HR PRN tablet 10/17/17 [Rx] Gabapentin [Neurontin] 800 mg PO QID PRN capsule 10/17/17 [Rx] Simethicone [Gas-X] 80 mg PO TID PRN tab.chew 10/17/17 [Rx] Warfarin [Coumadin] 4 mg PO 1800 3 Days #12 tablet 10/17/17 [Rx] Allergies/Adverse Reactions: 3 Allergy/AdvReac Type Severity Reaction Status Date / Time allantoin Allergy See Verified 07/22/16 22:39 Comments codeine Allergy Difficulty Verified 07/22/16 22:39 Breathing diphenhydramine Allergy Chest Pain Verified 07/22/16 22:39 [From Benadryl] ibuprofen Allergy See Verified 07/22/16 22:39 Comments methylprednisolone Allergy Hives Verified 07/22/16 22:39 [From Solu-Medrol] Penicillins [PCN] Allergy Rash Verified 07/22/16 22:39 phenytoin [From Dilantin] Allergy See Verified 07/22/16 22:39 Comments prednisone Allergy Hives Verified 07/22/16 22:39 Sulfa (Sulfonamide Allergy Rash Verified 07/22/16 22:39 Antibiotics) promethazine [From Phenergan] AdvReac Shakiness Verified 07/22/16 22:39 Date of admission: 10/13/17 20:26 Primary care physician: Edmundo Phillips MD Consults: 10/11/17 22:02 PT [Consult to Physical Therapy] [CONS] Routine Comment: Evaluate, develop and implement POC Reason for Consult: Patient has hx of CVA/TIA sx and reports right-sided weakness. Please assess patient for ambulation strength, stability , safety, deficits, and possible home assistive/ rehabilitation needs for post-discharge planning. Does patient have active BEDREST order?: No Is patient medically & hemodynamically stable?: Yes Patient assessed for mobility or mobilized this visit?: No 10/11/17 22:04 OT [Consult to Occupational Therapy] [CONS] Routine Comment: Evaluate, develop and implement POC Reason for Consult: Patient has hx of CVA/TIA sx and reports right-sided weakness. Please assess patient for ambulation strength, stability , safety, deficits, and possible home assistive/ rehabilitation needs for post-discharge planning. Does patient have active BEDREST order?: No Is patient medically & hemodynamically stable?: Yes Patient assessed for mobility or mobilized this visit?: No 10/12/17 01:12 Consult to Neurology [CONS] Routine Consulting Provider: [facility] Reason for Consult: TIA rule out Call Completed: No - Constitutional Vitals: Temp Pulse Resp BP Pulse Ox 98.3 F 90 18 130/78 91 10/17/17 12:23 10/17/17 12:23 10/17/17 12:23 10/17/17 12:23 10/17/17 12:23 General appearance: Present: no acute distress Exam: GENERAL: Alert, no distress, cooperative EYES: PERRLA, EOMI EARS: External ears normal, canals clear ABDOMEN: Abdomen soft, non-tender, BS normal, No masses or organomegaly EXTREMITIES: Extremities normal, no deformities, edema, clubbing or skin discoloration. Good capillary refill., No ulcers NEURO: Gait not tested. Reflexes normal and symmetric. Sensation grossly intact , Cranial nerves II-XII intact PULSES: 2+ radial, 2+ carotid Rest of the exam is non contributory - Patient Status Disposition: Home Health Service Condition: Good Functional capacity at discharge: independent ambulation Overall status at discharge: patient is progressing back to baseline - Discharge Instructions Follow Up With: Edmundo Phillips MD [Primary Care Provider] - 10/23/17 11:30 am - Diet and Activity Activity: as per physical therapy Diet: advance to your usual diet
--- NOTE | 2017-10-17 14:18 | Physician Discharge Referral ---
Home Health/Hosp Referral Info Provider in Charge Post Discharge: PCP - Diagnosis (1) CVA (cerebral vascular accident) Priority: Primary Status: Acute (2) DVT prophylaxis Priority: Secondary Status: Acute (3) DM (diabetes mellitus), type 2 Priority: Secondary Status: Acute (4) Obesity (BMI 30-39.9) Priority: Secondary Status: Acute (5) Expressive dysphasia Priority: Secondary Status: Acute (6) CKD (chronic kidney disease) stage 3, GFR 30-59 ml/min Priority: Secondary Status: Acute - Respiratory Orders Smoking Cessation: Smoking cessation has been advised. For more information, call the [place] Tobacco Quit Line at 7-200-MPNZ-NOW. - Services Needed Following services are medically necessary services: Physical Therapy, Occupational Therapy - Transfer Medications Prescriptions: Warfarin [Coumadin] 4 mg PO 1800 3 Days #12 tablet Home Medications: OxyCODONE Immed Rel [Roxicodone 10 MG] 10 mg PO QID PRN 11/28/16 [History] Amitriptyline HCl 100 mg PO HS 01/11/17 [History] Atorvastatin [Lipitor] 40 mg PO HS 01/11/17 [History] Baclofen 20 mg PO HS 01/11/17 [History] Omeprazole [PriLOSEC] 40 mg PO HS 01/11/17 [History] Citalopram [CeleXA] 20 mg PO HS 10/11/17 [History] GlipiZIDE [Glipizide Xl] 5 mg PO HS 10/11/17 [History] Acetaminophen [Tylenol] 650 mg PO Q6HR PRN tablet 10/17/17 [Rx] Gabapentin [Neurontin] 800 mg PO QID PRN capsule 10/17/17 [Rx] Simethicone [Gas-X] 80 mg PO TID PRN tab.chew 10/17/17 [Rx] Warfarin [Coumadin] 4 mg PO 1800 3 Days #12 tablet 10/17/17 [Rx] Allergies/Adverse Reactions: 3 Allergy/AdvReac Type Severity Reaction Status Date / Time allantoin Allergy See Verified 07/22/16 22:39 Comments codeine Allergy Difficulty Verified 07/22/16 22:39 Breathing diphenhydramine Allergy Chest Pain Verified 07/22/16 22:39 [From Benadryl] ibuprofen Allergy See Verified 07/22/16 22:39 Comments methylprednisolone Allergy Hives Verified 07/22/16 22:39 [From Solu-Medrol] Penicillins [PCN] Allergy Rash Verified 07/22/16 22:39 phenytoin [From Dilantin] Allergy See Verified 07/22/16 22:39 Comments prednisone Allergy Hives Verified 07/22/16 22:39 Sulfa (Sulfonamide Allergy Rash Verified 07/22/16 22:39 Antibiotics) promethazine [From Phenergan] AdvReac Shakiness Verified 07/22/16 22:39 Certification: Further, I certify that my clinical findings support that this patient is homebound (i.e. absences from home require considerable and taxing effort and are for medical reasons or rastafari services or infrequently or short duration when for other reasons) because: Homebound Reason: Patient requires assistance of a person or device to safely leave home Attestation: My signature below is to certify that this patient is under my care and that I, or nurse practitioner, or a physician's temporary administrative assistant working with me, has a face-to -face encounter with this patient.
[2017-10-17 15:40] VITALS: BP 120/65
[2017-10-17] MEDS ORDERED: *HR* Warfarin 4 MG TABLET PO ONE (18:00)
== END 2017-10-17 16:06 | disposition home health service (06) | DRG 45 ==
LOC: 3BNU → SUATTDRO 18:34
PROVIDERS: ADMIT Internal Medicine Nephrology; ATTEND Internal Medicine